=== PATIENT | male | born 1960 ===

== ENCOUNTER 2018-09-14 19:28 | Inpatient (IN) | payer OTHER ==
--- NOTE | 2018-09-14 19:33 | C.PDOC ---
History Of Present Illness 58 year old male presents to the ED c/o mid epigastric abdominal pain associated with nausea that started yesterday. Patient reports symptoms started since returning from [place] trip. Patient states his pain is sharp, stabbing with 6/10 discomfort. Patient denies fever, chill, vomit, diarrhea, dysuria, heamturia, rash. Time Seen by Provider: 09/14/18 19:32 Chief Complaint (Nursing): Abdominal Pain History Per: Patient History/Exam Limitations: no limitations Onset/Duration Of Symptoms: Days (1) Current Symptoms Are (Timing): Still Present Context: Travel Severity: Severe Pain Scale Rating Of: 6 Location Of Pain/Discomfort: Epigastric Radiation Of Pain To:: None Quality Of Discomfort: Sharp, Stabbing Associated Symptoms: Nausea, Vomiting. denies: Diarrhea, Urinary Symptoms Exacerbating Factors: None Alleviating Factors: None Last Bowel Movement: Today Recent travel outside of the [place]: No Additional History Per: Patient, Family Past Medical History Reviewed: Historical Data, Nursing Documentation, Vital Signs - Medical History PMH: No Chronic Diseases Surgical History: No Surg Hx Family History: States: Unknown Family Hx - Social History Hx Tobacco Use: No Hx Alcohol Use: No Hx Substance Use: No Review Of Systems Constitutional: Negative for: Fever, Chills Cardiovascular: Negative for: Chest Pain Respiratory: Negative for: Cough, Shortness of Breath Gastrointestinal: Positive for: Nausea, Abdominal Pain. Negative for: Vomiting, Diarrhea Genitourinary: Negative for: Dysuria, Hematuria Musculoskeletal: Negative for: Back Pain Skin: Negative for: Rash Physical Exam - Physical Exam Appears: Non-toxic, In Acute Distress Skin: Warm, Dry Head: Normacephalic Eye(s): bilateral: Normal Inspection Oral Mucosa: Dry Neck: Supple Chest: Symmetrical Cardiovascular: Rhythm Regular Respiratory: No Rales, No Rhonchi, No Wheezing Gastrointestinal/Abdominal: Soft, Tenderness (diffuse mid epigastric), No Distention, Guarding (voluntary), No Rebound Back: Normal Inspection Extremity: Normal ROM Extremity: Bilateral: Atraumatic, Normal Color And Temperature, Normal ROM Pulses: Left Dorsalis Pedis: Normal, Right Dorsalis Pedis: Normal Neurological/Psych: Oriented x3, Normal Speech, Normal Cognition Gait: Steady ED Course And Treatment - Laboratory Results Result Diagrams: 09/14/18 20:00 09/14/18 20:00 ECG: Interpreted By Me, Viewed By Me ECG Rhythm: Sinus Rhythm (77), Nonspecific Changes O2 Sat by Pulse Oximetry: 100 (ON RA) Pulse Ox Interpretation: Normal - CT Scan/US CT abd/pelvis Other Rad Studies (CT/US): Read By Radiologist, Radiology Report Reviewed CT/US Interpretation: MPRESSION: 1. FREE ABDOMINAL AND PELVIC FLUID. 2. CORONAL IMAGES DEMONSTRATE FLUID SURROUNDING THE c-LOOP OF THE DUODENUM, SEE CORONAL IMAGE 43. 3. THE DUODENAL MUCOSA APPEARS THICKENED. 4. BILATERAL SMALL RENAL CYSTS. 5. PPROSTHETIC CALCIFICATIONS. 6. NORMAL CALIBER ABDOMINAL AORTA. 7. APPENDIX NOT VISUALIZED WITH CERTAINTY.WHAT IS PRESUMED TO BE THE APPENDIX IS NONINFLAMMATORY, SEE CORONAL IMAGE #31. 8. NO EVIDENCE OF CHOLELITHIASIS. 9. cONSIDER DUODENAL ULCER. . Electronically signed on Sep 14, 2018 10:33:58 PM EST by: Shaun Leonard M.D., Certified by [facility]. spoke with the surgical garment inspector. will come and examine the patient Progress Note: Plan: - EKG. - Labs. - Morphine 4 mg IVP. - Protonix 40 mg IVP. - IV fluids. - Zofran 4 mg IVP. - UA Critical Care Time - Critical Care Note Total Time (in mins): 30 Documented critical care: time excludes all time spent performing seperately billable procedures. Disposition Discussed With : Byron Kiran Comment: accepted the pt on his service and took care at 10:48 PM Doctor Will See Patient In The: Hospital Counseled Patient/Family Regarding: Studies Performed, Diagnosis - Disposition Disposition: HOSPITALIZED Disposition Time: 19:33 Condition: FAIR Forms: [employer] (Nauruan) - POA Present On Arrival: Poor Glycemic Control - Clinical Impression Clinical Impression: Abdominal pain, Nausea, Vomiting, Pancreatitis, Jaundice - Scribe Statement The provider has reviewed the documentation as recorded by the Scribe Quan Joseph All medical record entries made by the Scribe were at my direction and personally dictated by me. I have reviewed the chart and agree that the record accurately reflects my personal performance of the history, physical exam, medical decision making, and the department course for this patient. I have also personally directed, reviewed, and agree with the discharge instructions and disposition. Decision To Admit - Pt Status Changed To: Hospital Disposition Of: Inpatient - Admit Certification Admit to Inpatient:: After my assessment, the patient will require ho spitalization for at least two midnights. This is because of the severity of symptoms shown, intensity of services needed, and/or the medical risk in this patient being treated as an outpatient. - InPatient: Physician Admission Certification:: After my assessment, the patient will require hospitalization for at least two midnights. This is because of the se verity of symptoms shown, intensity of services needed, and/or the medical risk in this patient being treated as an outpatient. - . Bed Request Type: Regular Admitting Physician: Byron Kiran Patient Diagnosis: Abdominal pain, Nausea, Vomiting, Pancreatitis, Jaundice
[2018-09-14] MEDS ORDERED: Sodium Chloride 0.9% 1,000 ML IV ONE (19:49)
[2018-09-14] MEDS ORDERED: Morphine 4 MG/ML VIAL ONE ×2 (19:52→22:21)
[2018-09-14] MEDS ORDERED: Sodium Chloride 0.9% 1,000 ML ONE (19:53)
[2018-09-14 20:07] LABS: BASO % 0.2 % (0.0-2.0); EOS # 0.1 K/uL (0.0-0.7); EOS % 0.8 % (0.0-4.0); HEMOGLOBIN 16.9 g/dL (12.0-18.0); LYMPH # 3.3 K/uL (1.0-4.3); LYMPH % 17.7 % (20.0-40.0); MEAN CELL VOLUME 87.5 fL (80.0-94.0); MEAN CORPUSCULAR HEMOGLOBIN 28.7 pg (27.0-31.0); MEAN CORPUSCULAR HGB CONC 32.8 g/dL (33.0-37.0); MONO % 5.2 % (0.0-10.0); NEUT # 14.1 K/uL (1.8-7.0); NEUT % 76.1 % (50.0-75.0); RBC 5.91 Mil/uL (4.40-5.90); RED CELL DISTRIBUTION WIDTH 13.6 % (11.5-14.5); WHITE BLOOD COUNT 18.6 K/uL (4.8-10.8)
[2018-09-14 20:21] LABS: PROTHROMBIN TIME 11.2 SECONDS (9.7-12.2)
[2018-09-14 20:22] LABS: ALB/GLOB RATIO 1.3 (1.0-2.1); ALBUMIN 4.5 g/dL (3.5-5.0); ALT/SGPT 152 U/L (21-72); AST/SGOT 240 U/L (17-59); BLOOD UREA NITROGEN 20 mg/dL (9-20); CALCIUM 8.8 mg/dl (8.6-10.4); GFR NON-AFRICAN AMERICAN > 60
[2018-09-14] MEDS ORDERED: Piperacillin/Tazobact 3.375 gm 100 ML IVPB STA (20:42)
[2018-09-14] MEDS ORDERED: metroNIDAZOLE IV 500 mg/100 ml 500 MG/100 ML BAG IVPB SCH (20:45)
[2018-09-14] MEDS ORDERED: Piperacillin/Tazobact 3.375 gm 100 ML IVPB ONE (20:52)
[2018-09-14] MEDS ORDERED: metroNIDAZOLE IV 500 mg/100 ml 500 MG/100 ML BAG ONE (20:52)
[2018-09-14] MEDS ORDERED: metroNIDAZOLE IV 500 mg/100 ml 500 MG/100 ML BAG IVPB STA (21:00)
[2018-09-14] MEDS ORDERED: Iohexol 300 100 ML IJ ONE (21:19)
[2018-09-14 21:44] LABS: LIPASE 35637 U/L (23-300)
[2018-09-14 21:57] LABS: URINE BILIRUBIN NEGATIVE (NEGATIVE); URINE BLOOD NEGATIVE (NEGATIVE); URINE CLARITY Clear (Clear); URINE COLOR Yellow (YELLOW); URINE GLUCOSE (UA) NORMAL (Normal); URINE LEUKOCYTE ESTERASE NEG Leu/uL (Negative); URINE PROTEIN NEGATIVE (NEGATIVE); URINE UROBILINOGEN NORMAL mg/dL (0.2-1.0)
[2018-09-14] MEDS ORDERED: Dextrose 5%/0.45% NS 1,000 ML IV SCH (23:00)
[2018-09-14] MEDS ORDERED: Lactated Ringer's 1,000 ML IV SCH (23:45)
--- NOTE | 2018-09-15 00:15 | CP.PCM.CON ---
History of Present Illness - History of Present Illness History of Present Illness: General Surgery Consult Note for Dr. Jean CC: Abdominal pain This is a 58M with no significant PMH who was eating spicy soup at a restaurant on Wednesday that he often frequents. After the meal he developed abdominal pain and diarrhea. However since then he has not passed gas or moved his bowels. Pain worse with movement associated with diaphoresis. The only thing that has helped has been pain medication he received in the ER. He has never experienced anything like this before. He denies history of postprandial pain, ETOH abuse, or scorpion bites. He denies any nausea or vomiting, chest pain SOB. In the Ed the pt had a CT scan which was significant for fluid around the duodenum, no evidence of extraluminal air, no evidence of GB stones, [place] [address]. PMH: HTN PSH: None ALL: NKDA Social: Denies Vices Review of Systems - Review of Systems Review of Systems: 12 point review of systems noted and negative except for abdominal pain and d iaphoresis Past Patient History - Infectious Disease Hx of Infectious Diseases: None - Past Social History Smoking Status: Never Smoked - PSYCHIATRIC Hx Substance Use: No - ANESTHESIA Hx Anesthesia: No Meds Allergies/Adverse Reactions: Allergies Allergy/AdvReac Type Severity Reaction Status Date / Time No Known Allergies Allergy Unverified 09/14/18 19:36 - Medications Medications: Current Medications Dextrose/Sodium Chloride (Dextrose 5%/0.45% Ns 1000 Ml) 1,000 mls @ 100 mls/hr IV .Q10H GABRIELLE Lactated Ringer's (Lactated Ringer's) 1,000 mls @ 200 mls/hr IV .Q5H GABRIELLE Morphine Sulfate (Morphine) 4 mg IVP Q4H PRN PRN Reason: Pain, moderate (4-7) Pantoprazole Sodium (Protonix Inj) 40 mg IVP DAILY GABRIELLE Physical Exam - Constitutional Appears: Non-toxic, No Acute Distress - Head Exam Head Exam: ATRAUMATIC, NORMOCEPHALIC - Eye Exam Eye Exam: EOMI, Normal appearance - ENT Exam ENT Exam: Mucous Membranes Dry - Respiratory Exam Respiratory Exam: NORMAL BREATHING PATTERN - Cardiovascular Exam Cardiovascular Exam: +S1, +S2 - GI/Abdominal Exam GI & Abdominal Exam: Distended, Soft, Tenderness (Epigastric). absent: Firm, Guarding, Hernia, Rigid - Neurological Exam Neurological exam: Alert, Oriented x3 - Psychiatric Exam Psychiatric exam: Normal Affect, Normal Mood - Skin Skin Exam: Dry, Intact Results - Vital Signs Recent Vital Signs: Last Vital Signs Temp 97.7 F 09/14/18 23:47 Pulse 87 09/14/18 23:47 Resp 16 09/14/18 23:47 BP 141/89 09/14/18 23:47 Pulse Ox 97 09/14/18 23:47 - Labs Result Diagrams: 09/14/18 20:00 09/14/18 20:00 Labs: Laboratory Results - last 24 hr 09/14/18 09/14/18 09/14/18 20:00 20:00 20:00 WBC 18.6 H RBC 5.91 H Hgb 16.9 Hct 51.7 H MCV 87.5 MCH 28.7 MCHC 32.8 L RDW 13.6 Plt Count 143 MPV 9.0 Neut % (Auto) 76.1 H Lymph % (Auto) 17.7 L [place] % (Auto) 5.2 Eos % (Auto) 0.8 Baso % (Auto) 0.2 Neut # (Auto) 14.1 H Lymph # (Auto) 3.3 [place] # (Auto) 1.0 H Eos # (Auto) 0.1 Baso # (Auto) 0.0 PT 11.2 INR 1.0 APTT 27 Sodium 138 Potassium 3.6 Chloride 99 Carbon Dioxide 28 Anion Gap 15 BUN 20 Creatinine 1.0 Est GFR ( Amer) > 60 Est GFR (Non-Af Amer) > 60 Random Glucose 172 H Calcium 8.8 Total Bilirubin 1.8 H AST 240 H ALT 152 H Alkaline Phosphatase 94 Total Protein 8.0 Albumin 4.5 Globulin 3.5 Albumin/Globulin Ratio 1.3 Lipase 75594 H Urine Color Urine Clarity Urine pH Ur Specific [place] Urine Protein Urine Glucose (UA) Urine Ketones Urine Blood Urine Nitrate Urine Bilirubin Urine Urobilinogen Ur Leukocyte Esterase Urine WBC (Auto) Urine RBC (Auto) 09/14/18 21:51 WBC RBC Hgb Hct MCV MCH MCHC RDW Plt Count MPV Neut % (Auto) Lymph % (Auto) [place] % (Auto) Eos % (Auto) Baso % (Auto) Neut # (Auto) Lymph # (Auto) [place] # (Auto) Eos # (Auto) Baso # (Auto) PT INR APTT Sodium Potassium Chloride Carbon Dioxide Anion Gap BUN Creatinine Est GFR ( Amer) Est GFR (Non-Af Amer) Random Glucose Calcium Total Bilirubin AST ALT Alkaline Phosphatase Total Protein Albumin Globulin Albumin/Globulin Ratio Lipase Urine Color Yellow Urine Clarity Clear Urine pH 6.0 Ur Specific [place] 1.041 H Urine Protein Negative Urine Glucose (UA) Normal Urine Ketones Negative Urine Blood Negative Urine Nitrate Negative Urine Bilirubin Negative Urine Urobilinogen Normal Ur Leukocyte Esterase Neg Urine WBC (Auto) < 1 Urine RBC (Auto) < 1 - Imaging and Cardiology CT scan - abdomen Status: Image reviewed by me, Report reviewed by me CT scan - pelvis Status: Image reviewed by me, Report reviewed by me Assessment & Plan - Assessment and Plan (Free Text) Assessment: 58M with pancreatitis NPO IVF pain control monitor urine output serial abdominal exams f/u abdominal US D/W Dr. Miranda Monsalve PGY3
[2018-09-15] MEDS: Dextrose 5%/0.45% NS 1,000 ML IV SCH ×5 (00:20→15:33)
[2018-09-15 06:30] LABS: BASO % 0.3 % (0.0-2.0); EOS % 0.1 % (0.0-4.0); LYMPH # 0.9 K/uL (1.0-4.3); LYMPH % 7.8 % (20.0-40.0); MEAN CELL VOLUME 87.1 fL (80.0-94.0); MEAN CORPUSCULAR HEMOGLOBIN 29.3 pg (27.0-31.0); MEAN CORPUSCULAR HGB CONC 33.6 g/dL (33.0-37.0); MEAN PLATELET VOLUME 9.3 fL (7.2-11.7); MONO # 0.6 K/uL (0.0-0.8); MONO % 4.7 % (0.0-10.0); NEUT # 10.2 K/uL (1.8-7.0); NEUT % 87.1 % (50.0-75.0); NRBC % 0.1 % (0.0-2.0); PLATELET COUNT 117 K/uL (130-400); RBC 4.82 Mil/uL (4.40-5.90); RED CELL DISTRIBUTION WIDTH 13.7 % (11.5-14.5); WHITE BLOOD COUNT 11.7 K/uL (4.8-10.8)
[2018-09-15 06:44] LABS: HEMOGLOBIN 14.1 g/dL (12.0-18.0)
[2018-09-15 06:56] LABS: LDL CHOLESTEROL 117 mg/dL (0-129)
[2018-09-15 07:07] LABS: ALB/GLOB RATIO 1.1 (1.0-2.1); ALBUMIN 3.1 g/dL (3.5-5.0); ALT/SGPT 135 U/L (21-72); AMYLASE 1132 U/L (30-110); AST/SGOT 101 U/L (17-59); BLOOD UREA NITROGEN 19 mg/dL (9-20); CALCIUM 7.6 mg/dl (8.6-10.4); GFR NON-AFRICAN AMERICAN > 60; HDL CHOLESTEROL 41 mg/dL (30-70)
[2018-09-15 07:10] LABS: LIPASE 5699 U/L (23-300)
[2018-09-15 08:35] LABS: LYMPHOCYTE 9 % (20-40); MONOCYTE 3 % (0-10); NEUTROPHIL 88 % (50-75); PLATELET ESTIMATE SLIGHTLY DECREASED (NORMAL); TOTAL CELLS COUNTED 100
--- NOTE | 2018-09-15 08:39 | CP.PCM.CON ---
<Payton Salazar - Last Filed: 09/15/18 17:30> History of Present Illness - History of Present Illness History of Present Illness: Patient is a 58 yo male with no PMH who presented to the ED with severe abdominal pain after eating spicy food. Lipase >35,000. Preliminary read of CT showed fluid around the duodenum, consistent with acute pancreatitis. He was made NPO and treated with IVF and morphine. Today, patient's abdominal pain is improving. He rates severity 10 as compared to 08/10 yesterday. Additionally, his lipase has decreased to 5700. PMH: denies Meds: ASA 81 mg PO daily All: NKA FH: denies SH: denies alcohol, tobacco, illicit drugs PMD: Qiana Review of Systems - Review of Systems All systems: reviewed and no additional remarkable complaints except - Constitutional Constitutional: absent: Anorexia, Chills, Fever, Headache - EENT Eyes: absent: Change in Vision - Cardiovascular Cardiovascular: absent: Chest Pain, Diaphoresis, Dyspnea - Respiratory Respiratory: absent: Cough, Dyspnea - Gastrointestinal Gastrointestinal: As Per HPI, Abdominal Pain, Bloating. absent: Diarrhea, Nausea, Vomiting - Genitourinary Genitourinary: absent: Dysuria, Hematuria - Musculoskeletal Musculoskeletal: absent: Arthralgias, Numbness, Tingling - Integumentary Integumentary: absent: Lesions - Neurological Neurological: absent: Dizziness, Headaches, Paresthesias, Syncope - Psychiatric Psychiatric: absent: Anxiety - Hematologic/Lymphatic Hematologic: absent: Easy Bleeding, Easy Bruising, Lymphadenopathy Past Patient History - Infectious Disease Hx of Infectious Diseases: None - Past Medical History & Family History Past Medical History?: Yes - Past Social History Smoking Status: Former Smoker Chewing Tobacco Use: No Cigar Use: No Alcohol: None Drugs: Denies - CARDIAC Hx Cardiac Disorders: Yes Hx Hypercholesterolemia: Yes Other/Comment: was on cholesterol med but was stopped by because :it's ok now" - PULMONARY Hx Respiratory Disorders: No Hx Asthma: No Hx Bronchitis: No Hx Chronic Obstructive Pulmonary Disease (COPD): No Hx Emphysema: No Hx Lung Cancer: No Hx Pneumonia: No Hx Pulmonary Edema: No Hx Pulmonary Embolism: No Hx Respiratory Aspiration: No Hx Respiratory Tract Infection: No Hx Sleep Apnea: No Hx Tuberculosis: No - NEUROLOGICAL Hx Neurological Disorder: No Hx Alzheimer's Disease: No HX Cerebrovascular Accident: No Hx Dementia: No Hx Dizziness: No Hx Meningitis: No Hx Migraine: No Hx Multiple Sclerosis: No Hx Paralysis: No Hx Parkinson's Disease: No Hx Seizures: No Hx Syncope: No Hx Transient Ischemic Attacks (TIA): No Hx Vertigo: No - HEENT Hx HEENT Problems: Yes Hx Blind: No Hx Cataracts: No Hx Deafness: No Hx Difficulty Chewing: No Hx Epistaxis: No Hx Glaucoma: No Hx Macular Degeneration: No Hx Sinusitis: No Other/Comment: Wears eyeglassess for driving - RENAL Hx Chronic Kidney Disease: No Hx Dialysis: No Hx Kidney Stones: No Hx Neurogenic Bladder: No Hx Pyelonephritis: No Hx Renal (Kidney) Cancer: No Hx Renal Failure: No - ENDOCRINE/METABOLIC Hx Endocrine Disorders: No Hx Adrenal Cancer: No Hx Diabetes Insipidus: No Hx Diabetes Mellitus Type 1: No Hx Diabetes Mellitus Type 2: No Hx Hyperthyroidism: No Hx Hypothyroidism: No Hx Systemic Lupus Erythematosus: No - HEMATOLOGICAL/ONCOLOGICAL Hx Blood Disorders: No - INTEGUMENTARY Hx Dermatological Problems: No - MUSCULOSKELETAL/RHEUMATOLOGICAL Hx Musculoskeletal Disorders: No Hx Falls: No - GASTROINTESTINAL Hx Gastrointestinal Disorders: No - GENITOURINARY/GYNECOLOGICAL Hx Genitourinary Disorders: No - PSYCHIATRIC Hx Psychophysiologic Disorder: No Hx Substance Use: No - SURGICAL HISTORY Hx Surgeries: No - ANESTHESIA Hx Anesthesia: No Hx Anesthesia Reactions: No Hx Malignant Hyperthermia: No Has any member of the family had a problem w/ anesthesia?: No Meds Allergies/Adverse Reactions: Allergies Allergy/AdvReac Type Severity Reaction Status Date / Time No Known Allergies Allergy Unverified 09/14/18 19:36 - Medications Medications: Current Medications Dextrose/Sodium Chloride (Dextrose 5%/0.45% Ns 1000 Ml) 1,000 mls @ 300 mls/hr IV .Q3H20M [facility] Last Admin: 09/15/18 08:03 Dose: 300 mls/hr Influenza Virus Vaccine (Fluzone Quad [id number]) 60 mcg IM .ONCE ONE Stop: 09/18/18 14:01 Morphine Sulfate (Morphine) 4 mg IVP Q4H PRN PRN Reason: Pain, moderate (4-7) Pantoprazole Sodium (Protonix Inj) 40 mg IVP DAILY [facility] Pneumococcal Polyvalent Vaccine (Pneumovax 23 Vaccine) 0.5 ml IM .ONCE ONE Stop: 09/18/18 14:01 Physical Exam - Constitutional Appears: Non-toxic, No Acute Distress - Head Exam Head Exam: ATRAUMATIC, NORMAL INSPECTION - Eye Exam Eye Exam: EOMI, Normal appearance, PERRL - ENT Exam ENT Exam: Mucous Membranes Moist - Neck Exam Neck exam: Positive for: Normal Inspection - Respiratory Exam Respiratory Exam: Clear to Auscultation Bilateral, NORMAL BREATHING PATTERN. absent: Accessory Muscle Use, Respiratory Distress - Cardiovascular Exam Cardiovascular Exam: REGULAR RHYTHM, +S1, +S2 - GI/Abdominal Exam GI & Abdominal Exam: Distended, Firm, Hyperactive Bowel Sounds, Tenderness. absent: Rebound, Rigid - Rectal Exam Rectal Exam: Deferred - Extremities Exam Extremities exam: Positive for: normal inspection - Neurological Exam Neurological exam: Alert, CN II-XII Intact, Oriented x3 - Psychiatric Exam Psychiatric exam: Normal Affect, Normal Mood - Skin Skin Exam: Dry, Intact, Normal Color, Warm Results - Vital Signs Recent Vital Signs: Last Vital Signs Temp 97.7 F 09/15/18 00:00 Pulse 80 09/15/18 00:24 Resp 18 09/15/18 00:24 BP 158/94 H 09/15/18 00:00 Pulse Ox 99 09/15/18 00:00 - Labs Result Diagrams: 09/15/18 06:24 09/15/18 06:24 Labs: Laboratory Results - last 24 hr 09/14/18 09/14/18 09/14/18 20:00 20:00 20:00 WBC 18.6 H RBC 5.91 H Hgb 16.9 Hct 51.7 H MCV 87.5 MCH 28.7 MCHC 32.8 L RDW 13.6 Plt Count 143 MPV 9.0 Neut % (Auto) 76.1 H Lymph % (Auto) 17.7 L [place] % (Auto) 5.2 Eos % (Auto) 0.8 Baso % (Auto) 0.2 Neut # (Auto) 14.1 H Lymph # (Auto) 3.3 [place] # (Auto) 1.0 H Eos # (Auto) 0.1 Baso # (Auto) 0.0 Neutrophils % (Manual) Lymphocytes % (Manual) Monocytes % (Manual) Platelet Estimate PT 11.2 INR 1.0 APTT 27 Sodium 138 Potassium 3.6 Chloride 99 Carbon Dioxide 28 Anion Gap 15 BUN 20 Creatinine 1.0 Est GFR ( Amer) > 60 Est GFR (Non-Af Amer) > 60 Random Glucose 172 H Calcium 8.8 Total Bilirubin 1.8 H AST 240 H ALT 152 H Alkaline Phosphatase 94 Total Protein 8.0 Albumin 4.5 Globulin 3.5 Albumin/Globulin Ratio 1.3 Triglycerides Cholesterol LDL Cholesterol Direct HDL Cholesterol Amylase Lipase 17814 H Urine Color Urine Clarity Urine pH Ur Specific [place] Urine Protein Urine Glucose (UA) Urine Ketones Urine Blood Urine Nitrate Urine Bilirubin Urine Urobilinogen Ur Leukocyte Esterase Urine WBC (Auto) Urine RBC (Auto) 09/14/18 09/15/18 09/15/18 21:51 06:24 06:24 WBC 11.7 H RBC 4.82 Hgb 14.1 D Hct 42.0 MCV 87.1 MCH 29.3 MCHC 33.6 RDW 13.7 Plt Count 117 L D MPV 9.3 Neut % (Auto) 87.1 H Lymph % (Auto) 7.8 L [place] % (Auto) 4.7 Eos % (Auto) 0.1 Baso % (Auto) 0.3 Neut # (Auto) 10.2 H Lymph # (Auto) 0.9 L [place] # (Auto) 0.6 Eos # (Auto) 0.0 Baso # (Auto) 0.0 Neutrophils % (Manual) 88 H Lymphocytes % (Manual) 9 L Monocytes % (Manual) 3 Platelet Estimate Slightly decreased L PT INR APTT Sodium 133 Potassium 4.0 Chloride 101 Carbon Dioxide 27 Anion Gap 9 L BUN 19 Creatinine 0.9 Est GFR ( Amer) > 60 Est GFR (Non-Af Amer) > 60 Random Glucose 143 H Calcium 7.6 L Total Bilirubin 1.4 H AST 101 H D ALT 135 H Alkaline Phosphatase 57 Total Protein 5.9 L Albumin 3.1 L D Globulin 2.7 Albumin/Globulin Ratio 1.1 Triglycerides 46 Cholesterol 156 LDL Cholesterol Direct 117 HDL Cholesterol 41 Amylase 1132 H Lipase 5699 H Urine Color Yellow Urine Clarity Clear Urine pH 6.0 Ur Specific [place] 1.041 H Urine Protein Negative Urine Glucose (UA) Normal Urine Ketones Negative Urine Blood Negative Urine Nitrate Negative Urine Bilirubin Negative Urine Urobilinogen Normal Ur Leukocyte Esterase Neg Urine WBC (Auto) < 1 Urine RBC (Auto) < 1 Assessment & Plan - Assessment and Plan (Free Text) Assessment: Patient is a 58 yo male who presented with acute pancreatitis. He is NPO. MRCP pending. ICU consulted due to severe pain and elevated lipase. Lipase has decreased from 35,000 to 5700. Pain has improved from 08/10 to 4/10, well controlled with morphine. Patient does not require ICU admission at this time. Will reassess if patient's presentation declines. Plan: Neuro: - No acute issues - Monitor mental status CV: - Monitor vitals Pulm: - Maintain spO2>92%- supplemental O2 PRN GI: Acute pancreatitis - Kayla's score on admission- 3 points - Kayla's score 48 hrs- 4 points, 15% mortality - Lipase improved 35,000->5700 - Calcium 8.8->7.6 (corrected Ca 8.3) - LDH 701 - CT A/P w/ IV contrast: acute pancreatitis, large amount of peripancreatic fluid that extends into pararenal spaces b/l on into the R paracolic gutter, perihepatic fluid, fluid partially surrounds duodenum, small amount of fluid into GB fossa, mild-mod fatty liver, b/l renal cysts - Abd u/s: acute pancreatitis, fatty liver vs parenchymal disease, cyst in L hepatic lobe, free fluid in upper abdomen, 4x4 mm GB polyp, normal GB wall thickness, negative Arias's sign - MRCP: acute pancreatitis, suspect tiny GB polyp or stone, mild GB wall thickening - NPO - LR @ 150 mL/hr - Morphine 4 mg IV Q4H PRN - GI consulted ([facility]) - Surgery consulted ([facility]) : - I's & O's - Replete electrolytes PRN Endo: - Maintain euglycemia Heme: - Monitor H&H ID: - Afebrile - Leukocytosis improved (18.6->11.7) PPx: VTE: SCDs GI: PTX 40 mg IV daily Code status: full code Case discussed with attending, Dr. Hartmann. PGY-1 Payton Salazar D.O. <Rolando Hartmann - Last Filed: 09/15/18 21:20> Meds - Medications Medications: Current Medications Lactated Ringer's (Lactated Ringer's) 1,000 mls @ 150 mls/hr IV .Q6H40M [facility] Last Admin: 09/15/18 14:40 Dose: 150 mls/hr Influenza Virus Vaccine (Fluzone Quad [id number]) 60 mcg IM .ONCE ONE Stop: 09/18/18 14:01 Morphine Sulfate (Morphine) 4 mg IVP Q4H PRN PRN Reason: Pain, moderate (4-7) Pantoprazole Sodium (Protonix Inj) 40 mg IVP DAILY GABRIELLE Last Admin: 09/15/18 09:13 Dose: 40 mg Pneumococcal Polyvalent Vaccine (Pneumovax 23 Vaccine) 0.5 ml IM .ONCE ONE Stop: 09/18/18 14:01 Results - Vital Signs Recent Vital Signs: Last Vital Signs Temp 98.4 F 09/15/18 15:15 Pulse 82 09/15/18 15:15 Resp 20 09/15/18 15:15 BP 148/85 09/15/18 15:15 Pulse Ox 96 09/15/18 15:15 - Labs Result Diagrams: 09/15/18 06:24 09/15/18 06:24 Labs: Laboratory Results - last 24 hr 09/14/18 09/14/18 09/15/18 20:00 21:51 06:24 WBC 11.7 H RBC 4.82 Hgb 14.1 D Hct 42.0 MCV 87.1 MCH 29.3 MCHC 33.6 RDW 13.7 Plt Count 117 L D MPV 9.3 Neut % (Auto) 87.1 H Lymph % (Auto) 7.8 L [place] % (Auto) 4.7 Eos % (Auto) 0.1 Baso % (Auto) 0.3 Neut # (Auto) 10.2 H Lymph # (Auto) 0.9 L [place] # (Auto) 0.6 Eos # (Auto) 0.0 Baso # (Auto) 0.0 Neutrophils % (Manual) 88 H Lymphocytes % (Manual) 9 L Monocytes % (Manual) 3 Platelet Estimate Slightly decreased L Sodium Potassium Chloride Carbon Dioxide Anion Gap BUN Creatinine Est GFR ( Amer) Est GFR (Non-Af Amer) Random Glucose Calcium Total Bilirubin AST ALT Alkaline Phosphatase Lactate Dehydrogenase Total Protein Albumin Globulin Albumin/Globulin Ratio Triglycerides Cholesterol LDL Cholesterol Direct HDL Cholesterol Amylase Lipase 55349 H Urine Color Yellow Urine Clarity Clear Urine pH 6.0 Ur Specific [place] 1.041 H Urine Protein Negative Urine Glucose (UA) Normal Urine Ketones Negative Urine Blood Negative Urine Nitrate Negative Urine Bilirubin Negative Urine Urobilinogen Normal Ur Leukocyte Esterase Neg Urine WBC (Auto) < 1 Urine RBC (Auto) < 1 11/15/18 06:24 WBC RBC Hgb Hct MCV MCH MCHC RDW Plt Count MPV Neut % (Auto) Lymph % (Auto) [place] % (Auto) Eos % (Auto) Baso % (Auto) Neut # (Auto) Lymph # (Auto) [place] # (Auto) Eos # (Auto) Baso # (Auto) Neutrophils % (Manual) Lymphocytes % (Manual) Monocytes % (Manual) Platelet Estimate Sodium 133 Potassium 4.0 Chloride 101 Carbon Dioxide 27 Anion Gap 9 L BUN 19 Creatinine 0.9 Est GFR ( Amer) > 60 Est GFR (Non-Af Amer) > 60 Random Glucose 143 H Calcium 7.6 L Total Bilirubin 1.4 H AST 101 H D ALT 135 H Alkaline Phosphatase 57 Lactate Dehydrogenase 701 H Total Protein 5.9 L Albumin 3.1 L D Globulin 2.7 Albumin/Globulin Ratio 1.1 Triglycerides 46 Cholesterol 156 LDL Cholesterol Direct 117 HDL Cholesterol 41 Amylase 1132 H Lipase 5699 H Urine Color Urine Clarity Urine pH Ur Specific [place] Urine Protein Urine Glucose (UA) Urine Ketones Urine Blood Urine Nitrate Urine Bilirubin Urine Urobilinogen Ur Leukocyte Esterase Urine WBC (Auto) Urine RBC (Auto) Attending/Attestation - Attestation I have personally seen and examined this patient.: Yes I have fully participated in the care of the patient.: Yes I have reviewed all pertinent clinical information: Yes Notes (Text): 09/15/18 21:19 The Patient was seen and examined at the bedside, Medical records reviewed, and management issues were discussed and formulated with the house staff. I have reviewed all the relevant clinical, laboratory, hemodynamic, radiographic data and medications Events reviewed Agree with above resident's assessment and treatment plans of care as transcribed in Dr. Salazar's note.
--- NOTE | 2018-09-15 09:19 | US ---
Abdominal ultrasound History: Pancreatitis. Comparison: CT scan dated 09/14/2018 Technique: Real-time sonography was performed through the abdomen. Findings: Liver: 12.4 centimeters in length. Increased echogenicity of the hepatic parenchymal cortex suggestive for fatty infiltration versus hepatic parenchymal disease. Punctate hypoattenuated cyst seen within the left hepatic lobe on CT scan is not well appreciated on ultrasound. Gallbladder: No calculi or sludge. 4 x 4 millimeter nonmobile echogenic foci at the level of the gallbladder wall near the neck suggestive for prominent polyp. Gallbladder appears somewhat contracted. Normal wall thickness of 2 millimeters. Negative sonographic Arias's sign. Free fluid noted within the upper abdomen. Common bile duct measures 3.6 millimeters, within normal limits. Limited visualization of the pancreas. Visualized portions appear somewhat thickened and heterogeneous which may represent underlying acute pancreatitis. Clinical correlation. Correlation with pancreatic enzyme levels may be helpful if clinically indicated. Spleen measures 9.3 centimeters in length. Visualized aorta and IVC are grossly preserved. No gross atherosclerotic calcification and mural plaque within the visualized aorta. Right kidney: 10.5 x 5.1 x 5.3 centimeters. No calculi or hydronephrosis. Previously noted upper pole hypoechoic cyst in the right kidney is not well appreciated on this ultrasound. Left Kidney: 11.5 x 5.2 x 5.6 centimeters. No calculi or hydronephrosis. Impression: 1. Limited visualization of the pancreas. Visualized portions appear somewhat thickened and heterogeneous which may represent underlying acute pancreatitis. Clinical correlation. Correlation with pancreatic enzyme levels may be helpful if clinically indicated. 2. Increased echogenicity of the hepatic parenchymal cortex suggestive for fatty infiltration versus hepatic parenchymal disease. Punctate hypoattenuated cyst seen within the left hepatic lobe on CT scan is not well appreciated on ultrasound. 3. Free fluid noted within the upper abdomen. 4. 4 x 4 millimeter nonmobile echogenic foci at the level of the gallbladder wall near the neck suggestive for prominent polyp. Gallbladder appears somewhat contracted. Normal wall thickness of 2 millimeters. Negative sonographic Arias's sign. 5. Previously noted upper pole hypoechoic cyst in the right kidney is not well appreciated on this ultrasound.
[2018-09-15] MEDS ORDERED: Gadodiamide 287 mg/ml 20 ml IV ONE (10:26)
--- NOTE | 2018-09-15 10:51 | CT ---
Date of service: 2018-09-14 21:27:01 PROCEDURE: CT Abdomen and Pelvis . HISTORY: Abd pain, elevated liver enzymes COMPARISON: None. TECHNIQUE: Contiguous axial images of the abdomen and pelvis performed following intravenous injection of approximately 100 cc Omnipaque 300 contrast material. Additional 2D sagittal and coronal reformats generated. Radiation dose: Total exam DLP = 359.21 mGy-cm. This CT exam was performed using one or more of the following dose reduction techniques: Automated exposure control, adjustment of the mA and/or kV according to patient size, and/or use of iterative reconstruction technique. FINDINGS: LOWER THORAX: There is a trace right-sided effusion with mild right basilar atelectasis. Minimal atelectasis seen in the left lung base including the lingular region. No evidence of left-sided effusion. No basilar pneumothorax. Heart size is normal. No significant pericardial effusion LIVER: The liver exhibits relatively normal size.. Small low-attenuation foci focus seen in the left lobe liver near the diaphragmatic dome. Mild to moderate diffuse fatty hepatic infiltration.. GALLBLADDER AND BILE DUCTS: Gallbladder physiologically distended. No evidence of intraluminal gallbladder calculi. Questionable small amount of perinephric cholecystic fluid. PANCREAS: The pancreas is boggy and edematous appearance of the pancreas with moderate amount of peripancreatic infiltration and moderate to relatively moderate amount of fluid predominantly surrounding the inferior margin of the distal pancreatic body and tail extending into the left para renal space. In addition, there is fluid seen in the right para renal space surrounding a thick-walled duodenum. Duodenal wall thickening likely reactive to pancreatitis.. Small amount of fluid is also seen surrounding the inferior margin of the uncinate process.. Fluid also extends inferiorly in the along the right paracolic gutter into the lower pelvis region.. Small amount of perihepatic and lesser amount of perisplenic fluid.. SPLEEN: Small amount of perisplenic fluid no splenomegaly. ADRENALS: There are no adrenal lesions. KIDNEYS AND URETERS: Small, sub cm low-attenuation foci seen both kidneys right slightly larger than left. Findings most consistent with renal cysts. BLADDER: The urinary bladder is physiologically distended. No evidence of intraluminal urinary bladder calculi. REPRODUCTIVE: Prostate gland measures approximately 3.7 cm. Prostatic calcifications are present APPENDIX: Appendix not seen with complete certainty on this study however no obvious inflammatory changes right lower quadrant of the abdomen despite fluid extending into the paracolic gutter... BOWEL: Evaluation of the bowel is somewhat limited due to the lack of oral contrast material stomach is partially distended with food debris liquid and air. As mentioned above, there is wall thickening of the duodenum which is felt to be reactive secondary to pancreatitis. Duodenal ulcer would be less likely PERITONEUM: As above. No free intraperitoneal air. Tiny fat containing umbilical hernia LYMPH NODES: Unremarkable. No enlarged lymph nodes. VASCULATURE: Unremarkable. No aortic aneurysm. No significant aortic atherosclerotic calcification or mural plaque present. BONES: Mild multilevel degenerative spondylosis of the thoracic spine. No acute compression fractures OTHER FINDINGS: None. IMPRESSION: Findings consistent with acute pancreatitis if the relatively large amount of peripancreatic fluid that extends into the para renal spaces bilaterally and on the right side into the right paracolic gutter region more so than left. There also perihepatic and lesser amount of perisplenic fluid. Fluid also up partially surrounds the duodenum which exhibits thick-walled appearance likely reactive. A duodenal also would be less likely given the extent of the fluid. Small amount of fluid also extends into gallbladder fossa partially surrounds the gallbladder. Mild to moderate fatty hepatic infiltration. Bilateral renal cysts.
--- NOTE | 2018-09-15 13:37 | CP.PCM.CON ---
History of Present Illness - History of Present Illness History of Present Illness: This is a 58 year old man with abdominal pain. Patient presented to the ER with epigastric katz for five hours. Patient had eaten at a restaurant in [place] the day prior to admission and developed diarrhea afterward. Severe pain in the epigastric area, sharp/cramping, developed at 16:00 on the day of admission, was accompanied by nausea, and persisted until his arrival in the ER. He had a small amount of beer with the meal in [place]. He denies having similar pain previously. He also denies having fever, vomiting, difficulty swallowing, heartburn, constipation, and rectal bleeding. On evaluation in the ER, he was afebrile. Epigastric tenderness was noted on abdominal exam. Lab work showed leukocytosis (18.6), HCT 51.7%, AST 240, ALT 152, TBILI 1.8, ALKP 94, lipase 98289. Sonogram did not show any stones in the GB, possible GB polyp, common duct 3.6 mm. Review of Systems - Constitutional Constitutional: absent: Chills, Fever - Cardiovascular Cardiovascular: absent: Chest Pain - Respiratory Respiratory: absent: Cough, Dyspnea - Gastrointestinal Gastrointestinal: Abdominal Pain, Diarrhea, Nausea. absent: Constipation, Dysphagia, Heartburn, Hematochezia, Vomiting - Genitourinary Genitourinary: absent: Dysuria, Hematuria - Musculoskeletal Musculoskeletal: absent: Back Pain - Integumentary Integumentary: absent: Rash Past Patient History - Infectious Disease Hx of Infectious Diseases: None - Past Medical History & Family History Past Medical History?: Yes - Past Social History Smoking Status: Former Smoker Chewing Tobacco Use: No Cigar Use: No Alcohol: None Drugs: Denies - CARDIAC Hx Cardiac Disorders: Yes Hx Hypercholesterolemia: Yes Other/Comment: was on cholesterol med but was stopped by because :it's ok now" - PULMONARY Hx Respiratory Disorders: No Hx Asthma: No Hx Bronchitis: No Hx Chronic Obstructive Pulmonary Disease (COPD): No Hx Emphysema: No Hx Lung Cancer: No Hx Pneumonia: No Hx Pulmonary Edema: No Hx Pulmonary Embolism: No Hx Respiratory Aspiration: No Hx Respiratory Tract Infection: No Hx Sleep Apnea: No Hx Tuberculosis: No - NEUROLOGICAL Hx Neurological Disorder: No Hx Alzheimer's Disease: No HX Cerebrovascular Accident: No Hx Dementia: No Hx Dizziness: No Hx Meningitis: No Hx Migraine: No Hx Multiple Sclerosis: No Hx Paralysis: No Hx Parkinson's Disease: No Hx Seizures: No Hx Syncope: No Hx Transient Ischemic Attacks (TIA): No Hx Vertigo: No - HEENT Hx HEENT Problems: Yes Hx Blind: No Hx Cataracts: No Hx Deafness: No Hx Difficulty Chewing: No Hx Epistaxis: No Hx Glaucoma: No Hx Macular Degeneration: No Hx Sinusitis: No Other/Comment: Wears eyeglassess for driving - RENAL Hx Chronic Kidney Disease: No Hx Dialysis: No Hx Kidney Stones: No Hx Neurogenic Bladder: No Hx Pyelonephritis: No Hx Renal (Kidney) Cancer: No Hx Renal Failure: No - ENDOCRINE/METABOLIC Hx Endocrine Disorders: No Hx Adrenal Cancer: No Hx Diabetes Insipidus: No Hx Diabetes Mellitus Type 1: No Hx Diabetes Mellitus Type 2: No Hx Hyperthyroidism: No Hx Hypothyroidism: No Hx Systemic Lupus Erythematosus: No - HEMATOLOGICAL/ONCOLOGICAL Hx Blood Disorders: No - INTEGUMENTARY Hx Dermatological Problems: No - MUSCULOSKELETAL/RHEUMATOLOGICAL Hx Musculoskeletal Disorders: No Hx Falls: No - GASTROINTESTINAL Hx Gastrointestinal Disorders: No - GENITOURINARY/GYNECOLOGICAL Hx Genitourinary Disorders: No - PSYCHIATRIC Hx Psychophysiologic Disorder: No Hx Substance Use: No - SURGICAL HISTORY Hx Surgeries: No - ANESTHESIA Hx Anesthesia: No Hx Anesthesia Reactions: No Hx Malignant Hyperthermia: No Has any member of the family had a problem w/ anesthesia?: No Meds Allergies/Adverse Reactions: Allergies Allergy/AdvReac Type Severity Reaction Status Date / Time No Known Allergies Allergy Unverified 09/14/18 19:36 - Medications Medications: Current Medications Dextrose/Sodium Chloride (Dextrose 5%/0.45% Ns 1000 Ml) 1,000 mls @ 300 mls/hr IV .Q3H20M [facility] Last Admin: 09/15/18 08:03 Dose: 300 mls/hr Influenza Virus Vaccine (Fluzone Quad [id number]) 60 mcg IM .ONCE ONE Stop: 09/18/18 14:01 Morphine Sulfate (Morphine) 4 mg IVP Q4H PRN PRN Reason: Pain, moderate (4-7) Pantoprazole Sodium (Protonix Inj) 40 mg IVP DAILY [facility] Last Admin: 09/15/18 09:13 Dose: 40 mg Pneumococcal Polyvalent Vaccine (Pneumovax 23 Vaccine) 0.5 ml IM .ONCE ONE Stop: 09/18/18 14:01 Physical Exam - Head Exam Head Exam: ATRAUMATIC, NORMOCEPHALIC - Eye Exam Eye Exam: EOMI, PERRL - Neck Exam Neck exam: Negative for: Lymphadenopathy, Thyromegaly - Respiratory Exam Respiratory Exam: NORMAL BREATHING PATTERN. absent: Rales, Rhonchi, Wheezes - Cardiovascular Exam Cardiovascular Exam: REGULAR RHYTHM, +S1, +S2. absent: Gallop, Rubs, Systolic M urmur - GI/Abdominal Exam GI & Abdominal Exam: Distended, Normal Bowel Sounds, Soft, Tenderness. absent: Mass, Organomegaly Additional comments: Mild tenderness to palpation in epigastrium - Rectal Exam Rectal Exam: Deferred - Extremities Exam Extremities exam: Negative for: calf tenderness, pedal edema Results - Vital Signs Recent Vital Signs: Last Vital Signs Temp 98.5 F 09/15/18 07:00 Pulse 79 09/15/18 07:00 Resp 18 09/15/18 07:00 BP 131/82 09/15/18 07:00 Pulse Ox 97 09/15/18 07:00 - Labs Result Diagrams: 09/15/18 06:24 09/15/18 06:24 Labs: Laboratory Results - last 24 hr 09/14/18 09/14/18 09/14/18 20:00 20:00 20:00 WBC 18.6 H RBC 5.91 H Hgb 16.9 Hct 51.7 H MCV 87.5 MCH 28.7 MCHC 32.8 L RDW 13.6 Plt Count 143 MPV 9.0 Neut % (Auto) 76.1 H Lymph % (Auto) 17.7 L [place] % (Auto) 5.2 Eos % (Auto) 0.8 Baso % (Auto) 0.2 Neut # (Auto) 14.1 H Lymph # (Auto) 3.3 [place] # (Auto) 1.0 H Eos # (Auto) 0.1 Baso # (Auto) 0.0 Neutrophils % (Manual) Lymphocytes % (Manual) Monocytes % (Manual) Platelet Estimate PT 11.2 INR 1.0 APTT 27 Sodium 138 Potassium 3.6 Chloride 99 Carbon Dioxide 28 Anion Gap 15 BUN 20 Creatinine 1.0 Est GFR ( Amer) > 60 Est GFR (Non-Af Amer) > 60 Random Glucose 172 H Calcium 8.8 Total Bilirubin 1.8 H AST 240 H ALT 152 H Alkaline Phosphatase 94 Lactate Dehydrogenase Total Protein 8.0 Albumin 4.5 Globulin 3.5 Albumin/Globulin Ratio 1.3 Triglycerides Cholesterol LDL Cholesterol Direct HDL Cholesterol Amylase Lipase 41353 H Urine Color Urine Clarity Urine pH Ur Specific [place] Urine Protein Urine Glucose (UA) Urine Ketones Urine Blood Urine Nitrate Urine Bilirubin Urine Urobilinogen Ur Leukocyte Esterase Urine WBC (Auto) Urine RBC (Auto) 09/14/18 09/15/18 09/15/18 21:51 06:24 06:24 WBC 11.7 H RBC 4.82 Hgb 14.1 D Hct 42.0 MCV 87.1 MCH 29.3 MCHC 33.6 RDW 13.7 Plt Count 117 L D MPV 9.3 Neut % (Auto) 87.1 H Lymph % (Auto) 7.8 L [place] % (Auto) 4.7 Eos % (Auto) 0.1 Baso % (Auto) 0.3 Neut # (Auto) 10.2 H Lymph # (Auto) 0.9 L [place] # (Auto) 0.6 Eos # (Auto) 0.0 Baso # (Auto) 0.0 Neutrophils % (Manual) 88 H Lymphocytes % (Manual) 9 L Monocytes % (Manual) 3 Platelet Estimate Slightly decreased L PT INR APTT Sodium 133 Potassium 4.0 Chloride 101 Carbon Dioxide 27 Anion Gap 9 L BUN 19 Creatinine 0.9 Est GFR ( Amer) > 60 Est GFR (Non-Af Amer) > 60 Random Glucose 143 H Calcium 7.6 L Total Bilirubin 1.4 H AST 101 H D ALT 135 H Alkaline Phosphatase 57 Lactate Dehydrogenase 701 H Total Protein 5.9 L Albumin 3.1 L D Globulin 2.7 Albumin/Globulin Ratio 1.1 Triglycerides 46 Cholesterol 156 LDL Cholesterol Direct 117 HDL Cholesterol 41 Amylase 1132 H Lipase 5699 H Urine Color Yellow Urine Clarity Clear Urine pH 6.0 Ur Specific [place] 1.041 H Urine Protein Negative Urine Glucose (UA) Normal Urine Ketones Negative Urine Blood Negative Urine Nitrate Negative Urine Bilirubin Negative Urine Urobilinogen Normal Ur Leukocyte Esterase Neg Urine WBC (Auto) < 1 Urine RBC (Auto) < 1 Assessment & Plan - Assessment and Plan (Free Text) Assessment: Patient has acute pancreatitis with significant hemoconcentration on admission, HCT 51.7%. Patient has been hydrated overnight, and we will reduce the infusion rate this afternoon. MRCP has been performed but not read. Etiologies include alcohol, microlithiasis, IgG4 related disease. Will follow.
--- NOTE | 2018-09-15 13:40 | CP.PCM.HP ---
History of Present Illness - History of Present Illness History of Present Illness: This is a 58 years old Nepali male who experienced severe abdominal pain, mild diarrhea, nausea, after eating soup at a restaurant in [place] yesterday. His and his [id number] ate the same soup and developed diarrhea, nausea, vomiting that subsided overnight. He has a history of HPTN, controlled by diet. He denies any cigarette smoking, any alcohol abuse. His father of a sudden in his 70's. His mother has DM, CAD, permanent pacemaker, HPTN. One brother in his sleep in his late 30's. Another brother had PCI in his late 50's. One brother recently underwent CABG in his early 50's. He does not take any medication, except ASA. In the ED, a CT scanof the abdomen revealed an edematous pancreas, thickened duodenal mucosa, and free fluid around the pancreas, in the colonic groove and around the kidneys.His serum Lipase: 35, 637 down to 5,599 today. WBC: 18,600 to 11,700 BUN: 19 creatinine: 0.9 glucose : 143 Ca++: 8.8 to 7.6 Total bilirubin: 1.8 to 1.4 AST: 210 to 101 ALT:152 to 135 Alk Phos: 94 to 57 LDH: 709. An abdominal US revealed no gallstone. The patient was kept NPO, started on IVF, and given Morphine sulfate for pain control. At the time at this examination, the patient abdominal pain decreases by about 50%, he has no nausea, vomiting, no flatus. Present on Admission - Present on Admission Any Indicators Present on Admission: No Review of Systems - Gastrointestinal Gastrointestinal: Abdominal Pain, Cramping, Diarrhea, Nausea Past Patient History - Infectious Disease Hx of Infectious Diseases: None - Tetanus Immunizations Tetanus Immunization: Unknown - Past Medical History & Family History Past Medical History?: Yes - Past Social History Smoking Status: Former Smoker Chewing Tobacco Use: No Cigar Use: No Alcohol: None Drugs: Denies Home Situation {Lives}: With Family Domestic Violence: Negative - CARDIAC Hx Hypercholesterolemia: Yes Other/Comment: was on cholesterol med but was stopped by because :it's ok now" - PULMONARY Hx Respiratory Disorders: No Hx Asthma: No Hx Bronchitis: No Hx Chronic Obstructive Pulmonary Disease (COPD): No Hx Emphysema: No Hx Lung Cancer: No Hx Pneumonia: No Hx Pulmonary Edema: No Hx Pulmonary Embolism: No Hx Respiratory Aspiration: No Hx Respiratory Tract Infection: No Hx Sleep Apnea: No Hx Tuberculosis: No - NEUROLOGICAL Hx Neurological Disorder: No Hx Alzheimer's Disease: No HX Cerebrovascular Accident: No Hx Dementia: No Hx Dizziness: No Hx Meningitis: No Hx Migraine: No Hx Multiple Sclerosis: No Hx Paralysis: No Hx Parkinson's Disease: No Hx Seizures: No Hx Syncope: No Hx Transient Ischemic Attacks (TIA): No Hx Vertigo: No - HEENT Hx HEENT Problems: Yes Hx Blind: No Hx Cataracts: No Hx Deafness: No Hx Difficulty Chewing: No Hx Epistaxis: No Hx Glaucoma: No Hx Macular Degeneration: No Hx Sinusitis: No Other/Comment: Wears eyeglassess for driving - RENAL Hx Chronic Kidney Disease: No Hx Dialysis: No Hx Kidney Stones: No Hx Neurogenic Bladder: No Hx Pyelonephritis: No Hx Renal (Kidney) Cancer: No Hx Renal Failure: No - ENDOCRINE/METABOLIC Hx Endocrine Disorders: No Hx Adrenal Cancer: No Hx Diabetes Insipidus: No Hx Diabetes Mellitus Type 1: No Hx Diabetes Mellitus Type 2: No Hx Hyperthyroidism: No Hx Hypothyroidism: No Hx Systemic Lupus Erythematosus: No - HEMATOLOGICAL/ONCOLOGICAL Hx Blood Disorders: No - INTEGUMENTARY Hx Dermatological Problems: No - MUSCULOSKELETAL/RHEUMATOLOGICAL Hx Musculoskeletal Disorders: No Hx Falls: No - GASTROINTESTINAL Hx Gastrointestinal Disorders: No - GENITOURINARY/GYNECOLOGICAL Hx Genitourinary Disorders: No - PSYCHIATRIC Hx Psychophysiologic Disorder: No Hx Substance Use: No - SURGICAL HISTORY Hx Surgeries: No - ANESTHESIA Hx Anesthesia: No Hx Anesthesia Reactions: No Hx Malignant Hyperthermia: No Has any member of the family had a problem w/ anesthesia?: No Meds Allergies/Adverse Reactions: Allergies Allergy/AdvReac Type Severity Reaction Status Date / Time No Known Allergies Allergy Unverified 09/14/18 19:36 Physical Exam - Constitutional Appears: Well - Head Exam Head Exam: NORMAL INSPECTION - Eye Exam Eye Exam: Normal appearance Pupil Exam: NORMAL ACCOMODATION - ENT Exam ENT Exam: Normal Exam - Neck Exam Neck exam: Positive for: Normal Inspection - Respiratory Exam Respiratory Exam: Clear to Auscultation Bilateral, NORMAL BREATHING PATTERN - Cardiovascular Exam Cardiovascular Exam: REGULAR RHYTHM - GI/Abdominal Exam GI & Abdominal Exam: Diminished Bowel Sounds, Guarding, Tenderness Additional comments: Tender and guarding of the epigastric area, with hypoactive BS. - Rectal Exam Rectal Exam: Deferred - Exam Exam: NORMAL INSPECTION - Extremities Exam Extremities exam: Positive for: normal inspection - Back Exam Back exam: NORMAL INSPECTION - Neurological Exam Neurological exam: Alert, CN II-XII Intact, Normal Gait, Oriented x3 - Psychiatric Exam Psychiatric exam: Anxious - Skin Skin Exam: Dry, Intact, Normal Color, Warm Results - Vital Signs Recent Vital Signs: Last Vital Signs Temp 98.5 F 09/15/18 07:00 Pulse 79 09/15/18 07:00 Resp 18 09/15/18 07:00 BP 131/82 09/15/18 07:00 Pulse Ox 97 09/15/18 07:00 - Labs Result Diagrams: 09/15/18 06:24 09/15/18 06:24 Labs: Laboratory Results - last 24 hr 09/14/18 09/14/18 09/14/18 20:00 20:00 20:00 WBC 18.6 H RBC 5.91 H Hgb 16.9 Hct 51.7 H MCV 87.5 MCH 28.7 MCHC 32.8 L RDW 13.6 Plt Count 143 MPV 9.0 Neut % (Auto) 76.1 H Lymph % (Auto) 17.7 L [place] % (Auto) 5.2 Eos % (Auto) 0.8 Baso % (Auto) 0.2 Neut # (Auto) 14.1 H Lymph # (Auto) 3.3 [place] # (Auto) 1.0 H Eos # (Auto) 0.1 Baso # (Auto) 0.0 Neutrophils % (Manual) Lymphocytes % (Manual) Monocytes % (Manual) Platelet Estimate PT 11.2 INR 1.0 APTT 27 Sodium 138 Potassium 3.6 Chloride 99 Carbon Dioxide 28 Anion Gap 15 BUN 20 Creatinine 1.0 Est GFR ( Amer) > 60 Est GFR (Non-Af Amer) > 60 Random Glucose 172 H Calcium 8.8 Total Bilirubin 1.8 H AST 240 H ALT 152 H Alkaline Phosphatase 94 Lactate Dehydrogenase Total Protein 8.0 Albumin 4.5 Globulin 3.5 Albumin/Globulin Ratio 1.3 Triglycerides Cholesterol LDL Cholesterol Direct HDL Cholesterol Amylase Lipase 68584 H Urine Color Urine Clarity Urine pH Ur Specific [place] Urine Protein Urine Glucose (UA) Urine Ketones Urine Blood Urine Nitrate Urine Bilirubin Urine Urobilinogen Ur Leukocyte Esterase Urine WBC (Auto) Urine RBC (Auto) 09/14/18 09/15/18 09/15/18 21:51 06:24 06:24 WBC 11.7 H RBC 4.82 Hgb 14.1 D Hct 42.0 MCV 87.1 MCH 29.3 MCHC 33.6 RDW 13.7 Plt Count 117 L D MPV 9.3 Neut % (Auto) 87.1 H Lymph % (Auto) 7.8 L [place] % (Auto) 4.7 Eos % (Auto) 0.1 Baso % (Auto) 0.3 Neut # (Auto) 10.2 H Lymph # (Auto) 0.9 L [place] # (Auto) 0.6 Eos # (Auto) 0.0 Baso # (Auto) 0.0 Neutrophils % (Manual) 88 H Lymphocytes % (Manual) 9 L Monocytes % (Manual) 3 Platelet Estimate Slightly decreased L PT INR APTT Sodium 133 Potassium 4.0 Chloride 101 Carbon Dioxide 27 Anion Gap 9 L BUN 19 Creatinine 0.9 Est GFR ( Amer) > 60 Est GFR (Non-Af Amer) > 60 Random Glucose 143 H Calcium 7.6 L Total Bilirubin 1.4 H AST 101 H D ALT 135 H Alkaline Phosphatase 57 Lactate Dehydrogenase 701 H Total Protein 5.9 L Albumin 3.1 L D Globulin 2.7 Albumin/Globulin Ratio 1.1 Triglycerides 46 Cholesterol 156 LDL Cholesterol Direct 117 HDL Cholesterol 41 Amylase 1132 H Lipase 5699 H Urine Color Yellow Urine Clarity Clear Urine pH 6.0 Ur Specific [place] 1.041 H Urine Protein Negative Urine Glucose (UA) Normal Urine Ketones Negative Urine Blood Negative Urine Nitrate Negative Urine Bilirubin Negative Urine Urobilinogen Normal Ur Leukocyte Esterase Neg Urine WBC (Auto) < 1 Urine RBC (Auto) < 1 Assessment & Plan (1) Acute pancreatitis Assessment and Plan: NPO, IVF, analgesics. F/U serum lipase, Amylase, serum electrolytes, ca++, CBC. GI and surgical evaluation. Awaiting MRCP. Status: Acute
[2018-09-15] MEDS: Lactated Ringer's 1,000 ML IV SCH ×2 (14:40→21:50)
--- NOTE | 2018-09-15 14:50 | MRI ---
MRI abdomen without/with IV contrast MRCP Indication: Acute pancreatitis Technique: Multiplanar, multi sequence magnetic resonance images of the abdomen were obtained without and with the administration of intravenous gadolinium using a multi phase abdomen protocol. Rotating maximum intensity projection images of the biliary system were generated. A total of 1054 images submitted for review Comparison: Abdominal ultrasound performed 09/15/[address] of the abdomen and pelvis performed 09/14/18 Findings: Hepatic steatosis. Too small to characterize 6 mm T2 hyperintense/T1 hypointense focus in the left hepatic lobe; likely cyst. The pancreas appears enlarged/edematous. Peripancreatic edema/upper abdominal free fluid. Gallbladder wall appears mildly thickened. Question tiny gallstone or polyp within the gallbladder. There is no intrahepatic biliary ductal dilatation. The common bile duct is not dilated. The pancreatic duct appears within normal limits of caliber. No filling defects are seen in the common bile duct or pancreatic duct. The spleen and adrenal glands appear unremarkable. The kidneys enhance symmetrically. No evidence of hydronephrosis or obstructing calculus. 9 mm right upper pole renal cyst. 8 mm left upper pole renal cyst. No bulky appreciated. Limited views of the inferior thorax demonstrates small right pleural effusion and atelectasis. Impression: Findings as above appear consistent with acute pancreatitis. Correlate clinically. Suspect tiny gallbladder polyp or gallstone. Mild gallbladder wall thickening. Correlate clinically. Bilateral probable renal cysts. Too small to characterize hepatic focus, likely cyst. Hepatic steatosis. Small right pleural effusion and atelectasis. Additional findings as above.
[2018-09-15] MEDS: Morphine 4 MG/ML VIAL IVP PRN (21:48)
[2018-09-16] MEDS: Lactated Ringer's 1,000 ML IV SCH ×4 (04:50→20:22)
[2018-09-16 06:58] LABS: BASO % 0.3 % (0.0-2.0); EOS # 0.1 K/uL (0.0-0.7); EOS % 0.7 % (0.0-4.0); HEMOGLOBIN 14.2 g/dL (12.0-18.0); LYMPH # 1.1 K/uL (1.0-4.3); LYMPH % 9.9 % (20.0-40.0); MEAN CELL VOLUME 86.5 fL (80.0-94.0); MEAN CORPUSCULAR HEMOGLOBIN 28.8 pg (27.0-31.0); MEAN CORPUSCULAR HGB CONC 33.3 g/dL (33.0-37.0); MEAN PLATELET VOLUME 9.1 fL (7.2-11.7); MONO # 0.8 K/uL (0.0-0.8); MONO % 6.8 % (0.0-10.0); NEUT # 9.5 K/uL (1.8-7.0); NEUT % 82.3 % (50.0-75.0); PLATELET COUNT 107 K/uL (130-400); RBC 4.91 Mil/uL (4.40-5.90); RED CELL DISTRIBUTION WIDTH 13.6 % (11.5-14.5); WHITE BLOOD COUNT 11.5 K/uL (4.8-10.8)
[2018-09-16 07:17] LABS: ALB/GLOB RATIO 1.1 (1.0-2.1); ALBUMIN 3.3 g/dL (3.5-5.0); ALT/SGPT 94 U/L (21-72); AMYLASE 572 U/L (30-110); AST/SGOT 35 U/L (17-59); BLOOD UREA NITROGEN 11 mg/dL (9-20); CALCIUM 8.1 mg/dl (8.6-10.4); GFR NON-AFRICAN AMERICAN > 60; LIPASE 1304 U/L (23-300)
--- NOTE | 2018-09-16 07:33 | CP.PCM.PN ---
Subjective - Date & Time of Evaluation Date of Evaluation: 09/16/18 Time of Evaluation: 07:15 - Subjective Subjective: Patient states that pain continues to improve. He denies having nausea and vomiting. He has not had a bowel movement since admission. Blood work today shows HCT 42.5% and BUN/Cr 11/0.8. MRI showed fatty liver, changes of pancreatitis, possible polyp in GB, no biliary dilatation or bile duct stone. Objective - Vital Signs/Intake and Output Vital Signs (last 24 hours): Temp Pulse Resp BP Pulse Ox 100 F H 102 H 20 152/104 H 90 L 09/16/18 04:14 09/16/18 04:14 09/16/18 04:14 09/16/18 04:14 09/16/18 04:14 Intake and Output: 09/16/18 09/16/18 06:59 18:59 Intake Total 1200 1200 Output Total 1400 1000 Balance -200 200 - Medications Medications: Current Medications Lactated Ringer's (Lactated Ringer's) 1,000 mls @ 150 mls/hr IV .Q6H40M [facility] Last Admin: 09/16/18 04:50 Dose: 150 mls/hr Influenza Virus Vaccine (Fluzone Quad [id number]) 60 mcg IM .ONCE ONE Stop: 09/18/18 14:01 Morphine Sulfate (Morphine) 4 mg IVP Q4H PRN PRN Reason: Pain, moderate (4-7) Last Admin: 09/15/18 21:48 Dose: 4 mg Pantoprazole Sodium (Protonix Inj) 40 mg IVP DAILY [facility] Last Admin: 09/15/18 09:13 Dose: 40 mg Pneumococcal Polyvalent Vaccine (Pneumovax 23 Vaccine) 0.5 ml IM .ONCE ONE Stop: 09/18/18 14:01 - Labs Labs: 09/16/18 06:46 09/16/18 06:46 PT 11.2 SECONDS (9.7-12.2) 09/14/18 20:00 INR 1.0 09/14/18 20:00 APTT 27 SECONDS (21-34) 09/14/18 20:00 - Constitutional Appears: No Acute Distress - Head Exam Head Exam: ATRAUMATIC, NORMOCEPHALIC - Eye Exam Eye Exam: EOMI, PERRL - Neck Exam Neck Exam: absent: Lymphadenopathy, Thyromegaly - Respiratory Exam Respiratory Exam: NORMAL BREATHING PATTERN. absent: Rales, Rhonchi, Wheezes - Cardiovascular Exam Cardiovascular Exam: REGULAR RHYTHM, +S1, +S2. absent: Gallop, Rubs, Murmur - GI/Abdominal Exam GI & Abdominal Exam: Distended, Soft, Normal Bowel Sounds. absent: Tenderness, Mass, Organomegaly - Rectal Exam Rectal Exam: Deferred - Extremities Exam Extremities Exam: absent: Calf Tenderness, Pedal Edema Assessment and Plan (1) Acute pancreatitis Assessment & Plan: Pain is improving. The BUN/Cr ratio has improved though the HCT is unchanged. Will start clear liquid diet. Status: Acute
[2018-09-16] MEDS ORDERED: Lactated Ringer's 1,000 ML IV SCH (07:35)
[2018-09-16 09:08] LABS: EOSINOPHIL 2 % (0-4); LYMPHOCYTE 10 % (20-40); MONOCYTE 2 % (0-10); NEUTROPHIL 86 % (50-75); PLATELET ESTIMATE SLIGHTLY DECREASED (NORMAL); TOTAL CELLS COUNTED 100
[2018-09-16] MEDS: Morphine 4 MG/ML VIAL IVP PRN (10:09)
--- NOTE | 2018-09-16 10:45 | CP.PCM.PN ---
Subjective - Date & Time of Evaluation Date of Evaluation: 09/16/18 Time of Evaluation: 10:36 - Subjective Subjective: General Surgery Progress Note For Dr. Jean This 58M was seen and examined this AM at bedside. He reports his pain is improving. He denies any nausea or vomiting he is passing gas however has not had a bowel movement. He denies any chest pain or SOB. We discussed that he will likely need his gallbladder removed, and it should be done before discharge. Objective - Vital Signs/Intake and Output Vital Signs (last 24 hours): Temp Pulse Resp BP Pulse Ox 99.0 F 98 H 20 153/95 H 92 L 09/16/18 07:00 09/16/18 07:00 09/16/18 07:00 09/16/18 07:00 09/16/18 09:03 Intake and Output: 09/16/18 09/16/18 06:59 18:59 Intake Total 1200 1200 Output Total 1400 1000 Balance -200 200 - Medications Medications: Current Medications Lactated Ringer's (Lactated Ringer's) 1,000 mls @ 120 mls/hr IV .Q8H20M [facility] Last Admin: 09/16/18 08:00 Dose: 120 mls/hr Influenza Virus Vaccine (Fluzone Quad [id number]) 60 mcg IM .ONCE ONE Stop: 09/18/18 14:01 Morphine Sulfate (Morphine) 4 mg IVP Q4H PRN PRN Reason: Pain, moderate (4-7) Last Admin: 09/16/18 10:09 Dose: 4 mg Pantoprazole Sodium (Protonix Inj) 40 mg IVP DAILY [facility] Last Admin: 09/16/18 10:08 Dose: 40 mg Pneumococcal Polyvalent Vaccine (Pneumovax 23 Vaccine) 0.5 ml IM .ONCE ONE Stop: 09/18/18 14:01 - Labs Labs: 09/16/18 06:46 09/16/18 06:46 PT 11.2 SECONDS (9.7-12.2) 09/14/18 20:00 INR 1.0 09/14/18 20:00 APTT 27 SECONDS (21-34) 09/14/18 20:00 - Constitutional Appears: Non-toxic, No Acute Distress - Head Exam Head Exam: ATRAUMATIC, NORMOCEPHALIC - Eye Exam Eye Exam: EOMI - ENT Exam ENT Exam: Mucous Membranes Moist - Respiratory Exam Respiratory Exam: NORMAL BREATHING PATTERN - Cardiovascular Exam Cardiovascular Exam: +S1, +S2 - GI/Abdominal Exam GI & Abdominal Exam: Distended, Guarding, Tenderness. absent: Soft - Neurological Exam Neurological Exam: Alert, Awake - Psychiatric Exam Psychiatric exam: Normal Affect, Normal Mood - Skin Skin Exam: Dry, Intact Assessment and Plan - Assessment and Plan (Free Text) Assessment: 58M with pancreatitis likely secondary to gallstones Patient endorsing improving pain and tenderness however he is still guarding MRCP: Possible small stone vs poly in GB. Recommend NPO IVF Pain control Will need cholecystectomy prior to discharge D/W Dr. Miranda Monsalve PGY3
[2018-09-16] MEDS: Piperacillin/Tazobact 3.375 GM in Sodium Chloride 100 ML IVPB SCH ×2 (17:44→22:10)
--- NOTE | 2018-09-16 20:23 | CP.PCM.PN ---
Subjective - Date & Time of Evaluation Date of Evaluation: 09/16/18 Time of Evaluation: 13:45 - Subjective Subjective: Patient still with abdominal pain, but less. No nausea, no fever, no flatus. Serum Amylase: 572 Lipase: 1304 WBC: 11.5 with 82 % PMN HGB; 14.3 Plt: 107,000 BUN: 11 Creatinine: 0.8 Mg++: 1.7 Ca++: 8.1 . MRCP: tiny polyp or stone of the gallbladder with mild wall thickening. Patient refuses cholecystectomy for now. Put on clear liquid by Dr Purvis. Objective - Vital Signs/Intake and Output Vital Signs (last 24 hours): Temp Pulse Resp BP Pulse Ox 98.5 F 90 20 173/90 H 94 L 09/16/18 16:10 09/16/18 16:10 09/16/18 16:10 09/16/18 16:10 09/16/18 16:10 Intake and Output: 09/16/18 09/17/18 18:59 06:59 Intake Total 2310 Output Total 2300 Balance 10 - Medications Medications: Current Medications Acetaminophen (Tylenol 325mg Tab) 650 mg PO Q6 PRN PRN Reason: Fever >100.4 F Lactated Ringer's (Lactated Ringer's) 1,000 mls @ 120 mls/hr IV .Q8H20M [facility] Last Admin: 09/16/18 08:00 Dose: 120 mls/hr Piperacillin Sod/Tazobactam (Sod 3.375 gm/ Sodium Chloride) 100 mls @ 200 mls/hr IVPB Q6H [facility]; Protocol Last Admin: 09/16/18 17:44 Dose: 200 mls/hr Influenza Virus Vaccine (Fluzone Quad [id number]) 60 mcg IM .ONCE ONE Stop: 09/18/18 14:01 Morphine Sulfate (Morphine) 4 mg IVP Q4H PRN PRN Reason: Pain, moderate (4-7) Last Admin: 09/16/18 10:09 Dose: 4 mg Pantoprazole Sodium (Protonix Inj) 40 mg IVP DAILY [facility] Last Admin: 09/16/18 10:08 Dose: 40 mg Pneumococcal Polyvalent Vaccine (Pneumovax 23 Vaccine) 0.5 ml IM .ONCE ONE Stop: 09/18/18 14:01 - Labs Labs: 09/16/18 06:46 11/16/18 06:46 PT 11.2 SECONDS (9.7-12.2) 09/14/18 20:00 INR 1.0 09/14/18 20:00 APTT 27 SECONDS (21-34) 09/14/18 20:00 - Constitutional Appears: Well, No Acute Distress - Head Exam Head Exam: NORMAL INSPECTION - Eye Exam Eye Exam: Normal appearance - ENT Exam ENT Exam: Normal Exam - Neck Exam Neck Exam: Normal Inspection - Respiratory Exam Respiratory Exam: Clear to Ausculation Bilateral, NORMAL BREATHING PATTERN - Cardiovascular Exam Cardiovascular Exam: REGULAR RHYTHM - GI/Abdominal Exam GI & Abdominal Exam: Soft, Tenderness, Hypoactive Bowel Sounds Additional comments: Tender but less guarding of the epigastric area. BS hypoactive. - Rectal Exam Rectal Exam: Deferred - Exam Exam: NORMAL INSPECTION - Extremities Exam Extremities Exam: Normal Inspection - Back Exam Back Exam: NORMAL INSPECTION - Neurological Exam Neurological Exam: Alert, Awake, Oriented x3 - Psychiatric Exam Psychiatric exam: Anxious - Skin Skin Exam: Dry, Intact, Warm Assessment and Plan (1) Acute pancreatitis Assessment & Plan: Improving. To start clear liquid. To continue IVF and Analgesic. Status: Acute
[2018-09-17] MEDS: Lactated Ringer's 1,000 ML IV SCH ×4 (00:50→18:24)
[2018-09-17] MEDS: Piperacillin/Tazobact 3.375 GM in Sodium Chloride 100 ML IVPB SCH ×4 (04:08→22:24)
[2018-09-17] MEDS: Morphine 4 MG/ML VIAL IVP PRN (04:36)
[2018-09-17 06:39] LABS: BASO % 0.4 % (0.0-2.0); EOS # 0.3 K/uL (0.0-0.7); EOS % 3.1 % (0.0-4.0); HEMOGLOBIN 13.7 g/dL (12.0-18.0); LYMPH % 9.4 % (20.0-40.0); MEAN CELL VOLUME 85.9 fL (80.0-94.0); MEAN CORPUSCULAR HGB CONC 34.9 g/dL (33.0-37.0); MEAN PLATELET VOLUME 9.2 fL (7.2-11.7); MONO # 0.9 K/uL (0.0-0.8); MONO % 8.4 % (0.0-10.0); NEUT # 8.1 K/uL (1.8-7.0); NEUT % 78.7 % (50.0-75.0); PLATELET COUNT 111 K/uL (130-400); RBC 4.56 Mil/uL (4.40-5.90); RED CELL DISTRIBUTION WIDTH 13.7 % (11.5-14.5); WHITE BLOOD COUNT 10.3 K/uL (4.8-10.8)
[2018-09-17 06:53] LABS: ALB/GLOB RATIO 1.1 (1.0-2.1); ALBUMIN 3.2 g/dL (3.5-5.0); ALT/SGPT 62 U/L (21-72); AMYLASE 225 U/L (30-110); AST/SGOT 25 U/L (17-59); BLOOD UREA NITROGEN 11 mg/dL (9-20); CALCIUM 7.9 mg/dl (8.6-10.4); GFR NON-AFRICAN AMERICAN > 60; LIPASE 259 U/L (23-300)
[2018-09-17 09:08] LABS: EOSINOPHIL 1 % (0-4); LYMPHOCYTE 8 % (20-40); MONOCYTE 7 % (0-10); NEUTROPHIL 84 % (50-75); PLATELET ESTIMATE SLIGHTLY DECREASED (NORMAL); TOTAL CELLS COUNTED 100
[2018-09-17 09:09] LABS: ANISOCYTOSIS SLIGHT; TOXIC GRANULATION PRESENT
--- NOTE | 2018-09-17 09:36 | CP.PCM.PN ---
Subjective - Date & Time of Evaluation Date of Evaluation: 09/17/18 Time of Evaluation: 07:00 - Subjective Subjective: General surgery progress note for Dr. Jean Pt seen and examined this AM. No adverse events overnight. patient tolerated CLD well, no nausea, no vomiting, passed gas last night with improvement in pain Objective - Vital Signs/Intake and Output Vital Signs (last 24 hours): Temp Pulse Resp BP Pulse Ox 99.2 F 87 20 156/98 H 96 09/17/18 08:00 09/17/18 08:00 09/17/18 08:00 09/17/18 08:00 09/17/18 08:00 Intake and Output: 09/17/18 09/17/18 06:59 18:59 Intake Total 1200 Balance 1200 - Medications Medications: Current Medications Acetaminophen (Tylenol 325mg Tab) 650 mg PO Q6 PRN PRN Reason: Fever >100.4 F Last Admin: 09/16/18 20:17 Dose: 650 mg Lactated Ringer's (Lactated Ringer's) 1,000 mls @ 120 mls/hr IV .Q8H20M [facility] Last Admin: 09/17/18 04:40 Dose: 120 mls/hr Piperacillin Sod/Tazobactam (Sod 3.375 gm/ Sodium Chloride) 100 mls @ 200 mls/hr IVPB Q6H [facility]; Protocol Last Admin: 09/17/18 04:08 Dose: 200 mls/hr Influenza Virus Vaccine (Fluzone Quad [id number]) 60 mcg IM .ONCE ONE Stop: 09/18/18 14:01 Morphine Sulfate (Morphine) 4 mg IVP Q4H PRN PRN Reason: Pain, moderate (4-7) Last Admin: 09/17/18 04:36 Dose: 4 mg Pantoprazole Sodium (Protonix Inj) 40 mg IVP DAILY [facility] Last Admin: 09/16/18 10:08 Dose: 40 mg Pneumococcal Polyvalent Vaccine (Pneumovax 23 Vaccine) 0.5 ml IM .ONCE ONE Stop: 09/18/18 14:01 Senna/Docusate Sodium (Senokot S 50 Mg-8.6 Mg) 1 tab PO BID [facility] - Labs Labs: 09/17/18 06:18 09/17/18 06:19 PT 11.2 SECONDS (9.7-12.2) 09/14/18 20:00 INR 1.0 09/14/18 20:00 APTT 27 SECONDS (21-34) 09/14/18 20:00 - Constitutional Appears: Well, Non-toxic, No Acute Distress - Head Exam Head Exam: ATRAUMATIC, NORMOCEPHALIC - Eye Exam Eye Exam: Conjunctival injection, Normal appearance. absent: Scleral icterus - ENT Exam ENT Exam: Mucous Membranes Moist, Normal Oropharynx - Respiratory Exam Respiratory Exam: NORMAL BREATHING PATTERN. absent: Accessory Muscle Use, Respiratory Distress - Cardiovascular Exam Cardiovascular Exam: RRR - GI/Abdominal Exam GI & Abdominal Exam: Distended (mild), Soft, Tenderness (mild epigastric tenderness to palpation). absent: Guarding - Extremities Exam Extremities Exam: absent: Calf Tenderness, Pedal Edema, Tenderness - Neurological Exam Neurological Exam: Alert, Awake, Oriented x3 - Psychiatric Exam Psychiatric exam: Normal Affect, Normal Mood - Skin Skin Exam: Dry, Normal Color, Warm Assessment and Plan - Assessment and Plan (Free Text) Assessment: 58M with pancreatitis--possible gallstone pancreatitis vs gallbladder polyp Plan: Continue CLD add pericolace to regimen Contineu antibiotics and IVF Continue to monitor clinical picture--once pancreatitis improved with consider cholecystectomy this hospitalization if patient agrees Encourage ambulation PRN nausea and pain medication Discussed with Dr. Miranda Mckeon, PGY2
[2018-09-17] MEDS: Docusate-Senna 50 mg-8.6 mg Tab PO SCH ×2 (09:39→18:26)
--- NOTE | 2018-09-17 10:29 | CP.PCM.PN ---
Subjective - Date & Time of Evaluation Date of Evaluation: 09/17/18 Time of Evaluation: 10:26 - Subjective Subjective: COVERING DR COLEMAN Less pain and tolerating liquids. LFT's and Lipase/amylase much better Objective - Vital Signs/Intake and Output Vital Signs (last 24 hours): Temp Pulse Resp BP Pulse Ox 99.2 F 87 20 156/98 H 96 09/17/18 08:00 09/17/18 08:00 09/17/18 08:00 09/17/18 08:00 09/17/18 08:00 Intake and Output: 09/17/18 09/17/18 06:59 18:59 Intake Total 1200 Balance 1200 - Medications Medications: Current Medications Acetaminophen (Tylenol 325mg Tab) 650 mg PO Q6 PRN PRN Reason: Fever >100.4 F Last Admin: 09/16/18 20:17 Dose: 650 mg Lactated Ringer's (Lactated Ringer's) 1,000 mls @ 120 mls/hr IV .Q8H20M [facility] Last Admin: 09/17/18 09:39 Dose: 120 mls/hr Piperacillin Sod/Tazobactam (Sod 3.375 gm/ Sodium Chloride) 100 mls @ 200 mls/hr IVPB Q6H [facility]; Protocol Last Admin: 09/17/18 04:08 Dose: 200 mls/hr Influenza Virus Vaccine (Fluzone Quad [id number]) 60 mcg IM .ONCE ONE Stop: 09/18/18 14:01 Morphine Sulfate (Morphine) 4 mg IVP Q4H PRN PRN Reason: Pain, moderate (4-7) Last Admin: 09/17/18 04:36 Dose: 4 mg Pantoprazole Sodium (Protonix Inj) 40 mg IVP DAILY [facility] Last Admin: 09/17/18 09:39 Dose: 40 mg Pneumococcal Polyvalent Vaccine (Pneumovax 23 Vaccine) 0.5 ml IM .ONCE ONE Stop: 09/18/18 14:01 Senna/Docusate Sodium (Senokot S 50 Mg-8.6 Mg) 1 tab PO BID [facility] Last Admin: 09/17/18 09:39 Dose: 1 tab - Labs Labs: 09/17/18 06:18 09/17/18 06:19 PT 11.2 SECONDS (9.7-12.2) 09/14/18 20:00 INR 1.0 09/14/18 20:00 APTT 27 SECONDS (21-34) 09/14/18 20:00 - Constitutional Appears: No Acute Distress - Head Exam Head Exam: ATRAUMATIC, NORMOCEPHALIC - Eye Exam Eye Exam: EOMI, PERRL. absent: Scleral icterus - Respiratory Exam Respiratory Exam: NORMAL BREATHING PATTERN - Cardiovascular Exam Cardiovascular Exam: REGULAR RHYTHM, +S1 - GI/Abdominal Exam GI & Abdominal Exam: Soft, Tenderness, Hypoactive Bowel Sounds. absent: Distended, Guarding, Rigid, Mass, Rebound - Extremities Exam Extremities Exam: Normal Inspection Assessment and Plan (1) Abnormal LFTs Assessment & Plan: May represent passage of CBD stone with marked improvement. r/o underlying chronic liver disease, Fatty Liver. Observe Status: Acute (2) Acute pancreatitis Assessment & Plan: Etiology of pancreatitis remains unclear. Possible passage of CBD stone likely given associated rise and fall in LFTs and pancreatic enzymes. No stone seen on MRI or other imaging modalities. Advance diet as tolerated. Observe plus IV fluids. Status: Acute (3) Gallbladder polyp Assessment & Plan: Polyp found on studies unlikely to be cause of pancreatitis or explain elevated LFTs. Surgical team involved. Observe Status: Acute
--- NOTE | 2018-09-17 16:35 | CP.PCM.PN ---
Subjective - Date & Time of Evaluation Date of Evaluation: 09/17/18 Time of Evaluation: 16:30 - Subjective Subjective: Patient tolerates clear liquid diet, passes flatus, denies any nausea. But still has abdominal pain and constipation. Liver enzymes almost normal . T britt: 2.2 Serum Amylase: 225 Serum lipase : 259. Afebrile. Will advance to full liquid diet. Objective - Vital Signs/Intake and Output Vital Signs (last 24 hours): Temp Pulse Resp BP Pulse Ox 99.2 F 87 20 156/98 H 96 09/17/18 08:00 09/17/18 08:00 09/17/18 08:00 09/17/18 08:00 09/17/18 08:00 Intake and Output: 09/17/18 09/17/18 06:59 18:59 Intake Total 1600 Balance 1600 - Medications Medications: Current Medications Acetaminophen (Tylenol 325mg Tab) 650 mg PO Q6 PRN PRN Reason: Fever >100.4 F Last Admin: 09/16/18 20:17 Dose: 650 mg Lactated Ringer's (Lactated Ringer's) 1,000 mls @ 120 mls/hr IV .Q8H20M [facility] Last Admin: 09/17/18 09:39 Dose: 120 mls/hr Piperacillin Sod/Tazobactam (Sod 3.375 gm/ Sodium Chloride) 100 mls @ 200 mls/hr IVPB Q6H [facility]; Protocol Last Admin: 09/17/18 10:43 Dose: 200 mls/hr Influenza Virus Vaccine (Fluzone Quad [id number]) 60 mcg IM .ONCE ONE Stop: 09/18/18 14:01 Morphine Sulfate (Morphine) 4 mg IVP Q4H PRN PRN Reason: Pain, moderate (4-7) Last Admin: 09/17/18 04:36 Dose: 4 mg Pantoprazole Sodium (Protonix Inj) 40 mg IVP DAILY [facility] Last Admin: 09/17/18 09:39 Dose: 40 mg Pneumococcal Polyvalent Vaccine (Pneumovax 23 Vaccine) 0.5 ml IM .ONCE ONE Stop: 09/18/18 14:01 Senna/Docusate Sodium (Senokot S 50 Mg-8.6 Mg) 1 tab PO BID [facility] Last Admin: 09/17/18 09:39 Dose: 1 tab - Labs Labs: 09/17/18 06:18 09/17/18 06:19 PT 11.2 SECONDS (9.7-12.2) 09/14/18 20:00 INR 1.0 09/14/18 20:00 APTT 27 SECONDS (21-34) 09/14/18 20:00 - Constitutional Appears: Well, No Acute Distress - Head Exam Head Exam: NORMAL INSPECTION - Eye Exam Eye Exam: Normal appearance Pupil Exam: NORMAL ACCOMODATION - ENT Exam ENT Exam: Normal Exam - Neck Exam Neck Exam: Normal Inspection - Respiratory Exam Respiratory Exam: Clear to Ausculation Bilateral, NORMAL BREATHING PATTERN - Cardiovascular Exam Cardiovascular Exam: REGULAR RHYTHM - GI/Abdominal Exam GI & Abdominal Exam: Soft, Tenderness, Hypoactive Bowel Sounds Additional comments: Abdomen mat making machine tender at the epigastric area, but no guarding. - Rectal Exam Rectal Exam: Deferred - Extremities Exam Extremities Exam: Normal Inspection - Back Exam Back Exam: NORMAL INSPECTION - Neurological Exam Neurological Exam: Alert, Awake, Oriented x3 - Psychiatric Exam Psychiatric exam: Anxious - Skin Skin Exam: Dry, Intact, Normal Color, Warm Assessment and Plan (1) Acute pancreatitis Assessment & Plan: Improving. Advance to full liquid diet. Status: Acute
[2018-09-17] MEDS ORDERED: Magnesium Hydroxide Susp 30 ml UD PO ONE (16:42)
[2018-09-18] MEDS: Morphine 4 MG/ML VIAL IVP PRN (00:36)
[2018-09-18] MEDS: Lactated Ringer's 1,000 ML IV SCH ×4 (00:38→18:46)
[2018-09-18] MEDS: Piperacillin/Tazobact 3.375 GM in Sodium Chloride 100 ML IVPB SCH ×4 (04:04→22:35)
[2018-09-18 07:56] LABS: BASO % 0.4 % (0.0-2.0); EOS # 0.4 K/uL (0.0-0.7); HEMOGLOBIN 13.8 g/dL (12.0-18.0); LYMPH # 1.2 K/uL (1.0-4.3); LYMPH % 11.8 % (20.0-40.0); MEAN CELL VOLUME 86.5 fL (80.0-94.0); MEAN CORPUSCULAR HEMOGLOBIN 29.7 pg (27.0-31.0); MEAN CORPUSCULAR HGB CONC 34.3 g/dL (33.0-37.0); MEAN PLATELET VOLUME 9.1 fL (7.2-11.7); MONO # 0.9 K/uL (0.0-0.8); MONO % 8.4 % (0.0-10.0); NEUT # 7.9 K/uL (1.8-7.0); NEUT % 75.4 % (50.0-75.0); RBC 4.66 Mil/uL (4.40-5.90); RED CELL DISTRIBUTION WIDTH 13.5 % (11.5-14.5); WHITE BLOOD COUNT 10.5 K/uL (4.8-10.8)
[2018-09-18 08:36] LABS: ALBUMIN 3.2 g/dL (3.5-5.0); ALT/SGPT 49 U/L (21-72); AMYLASE 118 U/L (30-110); AST/SGOT 22 U/L (17-59); BLOOD UREA NITROGEN 13 mg/dL (9-20); GFR NON-AFRICAN AMERICAN > 60; LIPASE 151 U/L (23-300)
[2018-09-18] MEDS: Docusate-Senna 50 mg-8.6 mg Tab PO SCH ×2 (09:34→17:14)
--- NOTE | 2018-09-18 10:44 | CP.PCM.PN ---
Subjective - Date & Time of Evaluation Date of Evaluation: 09/18/18 Time of Evaluation: 10:41 - Subjective Subjective: COVERING DR COLEMAN No pain N/V. Enzymes have virtually normalized. Objective - Vital Signs/Intake and Output Vital Signs (last 24 hours): Temp Pulse Resp BP Pulse Ox 99.1 F 88 20 154/90 H 96 09/18/18 08:00 09/18/18 08:00 09/18/18 08:00 09/18/18 08:00 09/18/18 08:00 Intake and Output: 09/18/18 09/18/18 06:59 18:59 Intake Total 1460 1220 Output Total 1000 Balance 460 1220 - Medications Medications: Current Medications Acetaminophen (Tylenol 325mg Tab) 650 mg PO Q6 PRN PRN Reason: Fever >100.4 F Last Admin: 09/16/18 20:17 Dose: 650 mg Lactated Ringer's (Lactated Ringer's) 1,000 mls @ 120 mls/hr IV .Q8H20M [facility] Last Admin: 09/18/18 00:38 Dose: 120 mls/hr Piperacillin Sod/Tazobactam (Sod 3.375 gm/ Sodium Chloride) 100 mls @ 200 mls/hr IVPB Q6H [facility]; Protocol Last Admin: 09/18/18 10:37 Dose: 200 mls/hr Influenza Virus Vaccine (Fluzone Quad [id number]) 60 mcg IM .ONCE ONE Stop: 09/18/18 14:01 Morphine Sulfate (Morphine) 4 mg IVP Q4H PRN PRN Reason: Pain, moderate (4-7) Last Admin: 09/18/18 00:36 Dose: 4 mg Pantoprazole Sodium (Protonix Inj) 40 mg IVP DAILY [facility] Last Admin: 09/18/18 09:34 Dose: 40 mg Pneumococcal Polyvalent Vaccine (Pneumovax 23 Vaccine) 0.5 ml IM .ONCE ONE Stop: 09/18/18 14:01 Senna/Docusate Sodium (Senokot S 50 Mg-8.6 Mg) 1 tab PO BID [facility] Last Admin: 09/18/18 09:34 Dose: 1 tab - Labs Labs: 09/18/18 07:46 09/18/18 07:46 PT 11.2 SECONDS (9.7-12.2) 09/14/18 20:00 INR 1.0 09/14/18 20:00 APTT 27 SECONDS (21-34) 09/14/18 20:00 - Constitutional Appears: No Acute Distress - Head Exam Head Exam: ATRAUMATIC, NORMOCEPHALIC - Eye Exam Eye Exam: EOMI, PERRL - Respiratory Exam Respiratory Exam: NORMAL BREATHING PATTERN - Cardiovascular Exam Cardiovascular Exam: REGULAR RHYTHM - GI/Abdominal Exam GI & Abdominal Exam: Soft, Normal Bowel Sounds. absent: Distended, Rigid, Tenderness, Organomegaly, Rebound Assessment and Plan (1) Abnormal LFTs Assessment & Plan: Likely due to passage of CBD stone vs exacerbation of underlying chronic liver disease, (NAFLD, medications, autoimmune, etc) Continue to monitor enzymes though now nearly normal. Status: Acute (2) Acute pancreatitis Assessment & Plan: as above. Advance diet as tolerated. Surgical follow up for possible Lap Padma due to possible passage of stone as source of pancreatitis. Status: Acute (3) Gallbladder polyp Status: Acute
--- NOTE | 2018-09-18 10:44 | CP.PCM.PN ---
Subjective - Date & Time of Evaluation Date of Evaluation: 09/18/18 Time of Evaluation: 10:41 - Subjective Subjective: General Surgery Progress Note for Dr. Jean This 58M was seen and examined this AM at bedside. No acute events overnight. He is tolerating clears. He reports his abdominal pain is improving. He is passing gas however denies bowel movement. Discussed a need for cholecystectomy with him during this admission. He requested that I discuss the cholecystectomy with Dr. Kiran. Objective - Vital Signs/Intake and Output Vital Signs (last 24 hours): Temp Pulse Resp BP Pulse Ox 99.1 F 88 20 154/90 H 96 09/18/18 08:00 09/18/18 08:00 09/18/18 08:00 09/18/18 08:00 09/18/18 08:00 Intake and Output: 09/18/18 09/18/18 06:59 18:59 Intake Total 1460 1220 Output Total 1000 Balance 460 1220 - Medications Medications: Current Medications Acetaminophen (Tylenol 325mg Tab) 650 mg PO Q6 PRN PRN Reason: Fever >100.4 F Last Admin: 09/16/18 20:17 Dose: 650 mg Lactated Ringer's (Lactated Ringer's) 1,000 mls @ 120 mls/hr IV .Q8H20M [facility] Last Admin: 09/18/18 00:38 Dose: 120 mls/hr Piperacillin Sod/Tazobactam (Sod 3.375 gm/ Sodium Chloride) 100 mls @ 200 mls/hr IVPB Q6H [facility]; Protocol Last Admin: 09/18/18 10:37 Dose: 200 mls/hr Influenza Virus Vaccine (Fluzone Quad [id number]) 60 mcg IM .ONCE ONE Stop: 09/18/18 14:01 Morphine Sulfate (Morphine) 4 mg IVP Q4H PRN PRN Reason: Pain, moderate (4-7) Last Admin: 09/18/18 00:36 Dose: 4 mg Pantoprazole Sodium (Protonix Inj) 40 mg IVP DAILY [facility] Last Admin: 09/18/18 09:34 Dose: 40 mg Pneumococcal Polyvalent Vaccine (Pneumovax 23 Vaccine) 0.5 ml IM .ONCE ONE Stop: 09/18/18 14:01 Senna/Docusate Sodium (Senokot S 50 Mg-8.6 Mg) 1 tab PO BID [facility] Last Admin: 09/18/18 09:34 Dose: 1 tab - Labs Labs: 09/18/18 07:46 09/18/18 07:46 PT 11.2 SECONDS (9.7-12.2) 09/14/18 20:00 INR 1.0 09/14/18 20:00 APTT 27 SECONDS (21-34) 09/14/18 20:00 - Constitutional Appears: Non-toxic, No Acute Distress - Head Exam Head Exam: ATRAUMATIC, NORMOCEPHALIC - Eye Exam Eye Exam: EOMI, Normal appearance - ENT Exam ENT Exam: Mucous Membranes Moist - Respiratory Exam Respiratory Exam: NORMAL BREATHING PATTERN - Cardiovascular Exam Cardiovascular Exam: +S1, +S2 - GI/Abdominal Exam GI & Abdominal Exam: Soft, Tenderness. absent: Distended, Firm, Guarding, Rigid - Neurological Exam Neurological Exam: Alert, Awake - Psychiatric Exam Psychiatric exam: Normal Affect, Normal Mood - Skin Skin Exam: Dry, Intact Assessment and Plan - Assessment and Plan (Free Text) Assessment: 58M with gallstone pancreatitis Discussed surgical recommendations for laparoscopic cholecystectomy prior to discharge with Dr. Kiran however the patient does not wont to have a cholecystectomy at this time. Continue medical management per primary care physician and gastroenterology team. Thank you for the consult. Please reconsult as needed. D/W Dr. Miranda Monsalve PGY3
--- NOTE | 2018-09-18 11:45 | CP.PCM.PN ---
Subjective - Date & Time of Evaluation Date of Evaluation: 09/18/18 Time of Evaluation: 11:49 - Subjective Subjective: no pain no tenderness. ok for d/c. I explainrd to patient probability of lap evelia. he seems agreeable. will sse in oddice adter my return and schedule as an elective procedure Objective - Vital Signs/Intake and Output Vital Signs (last 24 hours): Temp Pulse Resp BP Pulse Ox 99.1 F 88 20 154/90 H 96 09/18/18 08:00 09/18/18 08:00 09/18/18 08:00 09/18/18 08:00 09/18/18 08:00 Intake and Output: 09/18/18 09/18/18 06:59 18:59 Intake Total 1460 1220 Output Total 1000 Balance 460 1220 - Medications Medications: Current Medications Acetaminophen (Tylenol 325mg Tab) 650 mg PO Q6 PRN PRN Reason: Fever >100.4 F Last Admin: 09/16/18 20:17 Dose: 650 mg Lactated Ringer's (Lactated Ringer's) 1,000 mls @ 120 mls/hr IV .Q8H20M [facility] Last Admin: 09/18/18 00:38 Dose: 120 mls/hr Piperacillin Sod/Tazobactam (Sod 3.375 gm/ Sodium Chloride) 100 mls @ 200 mls/hr IVPB Q6H [facility]; Protocol Last Admin: 09/18/18 10:37 Dose: 200 mls/hr Influenza Virus Vaccine (Fluzone Quad [id number]) 60 mcg IM .ONCE ONE Stop: 09/18/18 14:01 Morphine Sulfate (Morphine) 4 mg IVP Q4H PRN PRN Reason: Pain, moderate (4-7) Last Admin: 09/18/18 00:36 Dose: 4 mg Pantoprazole Sodium (Protonix Inj) 40 mg IVP DAILY [facility] Last Admin: 09/18/18 09:34 Dose: 40 mg Pneumococcal Polyvalent Vaccine (Pneumovax 23 Vaccine) 0.5 ml IM .ONCE ONE Stop: 09/18/18 14:01 Senna/Docusate Sodium (Senokot S 50 Mg-8.6 Mg) 1 tab PO BID [facility] Last Admin: 09/18/18 09:34 Dose: 1 tab - Labs Labs: 09/18/18 07:46 09/18/18 07:46 PT 11.2 SECONDS (9.7-12.2) 09/14/18 20:00 INR 1.0 09/14/18 20:00 APTT 27 SECONDS (21-34) 09/14/18 20:00
[2018-09-18] MEDS ORDERED: Influenza Vaccine 60 MCG/0.5 ML SYR (3 yr & up) IM ONE (14:00)
[2018-09-18] MEDS ORDERED: Pneumococcal 23-Valent Vaccine IM ONE (14:00)
--- NOTE | 2018-09-18 19:31 | CP.PCM.PN ---
Subjective - Date & Time of Evaluation Date of Evaluation: 09/18/18 Time of Evaluation: 16:00 - Subjective Subjective: Patient had a BM today. Has minimal abdominal pain, and tolerated soft diet well. WBC: 10.5 with 75.5 % PMN. BUN: 13 creatinine : 0.9 . Serum Amylase: 118 serum lipase: 259. [facility]. Objective - Vital Signs/Intake and Output Vital Signs (last 24 hours): Temp Pulse Resp BP Pulse Ox 98.7 F 84 20 148/89 97 09/18/18 15:00 09/18/18 15:00 09/18/18 15:00 09/18/18 15:00 09/18/18 15:00 Intake and Output: 09/18/18 09/19/18 18:59 06:59 Intake Total 2660 Output Total 800 Balance 1860 - Medications Medications: Current Medications Acetaminophen (Tylenol 325mg Tab) 650 mg PO Q6 PRN PRN Reason: Fever >100.4 F Last Admin: 09/16/18 20:17 Dose: 650 mg Lactated Ringer's (Lactated Ringer's) 1,000 mls @ 120 mls/hr IV .Q8H20M [facility] Last Admin: 09/18/18 18:46 Dose: Not Given Piperacillin Sod/Tazobactam (Sod 3.375 gm/ Sodium Chloride) 100 mls @ 200 mls/hr IVPB Q6H [facility]; Protocol Last Admin: 09/18/18 17:14 Dose: 200 mls/hr Morphine Sulfate (Morphine) 4 mg IVP Q4H PRN PRN Reason: Pain, moderate (4-7) Last Admin: 09/18/18 00:36 Dose: 4 mg Pantoprazole Sodium (Protonix Inj) 40 mg IVP DAILY [facility] Last Admin: 09/18/18 09:34 Dose: 40 mg Senna/Docusate Sodium (Senokot S 50 Mg-8.6 Mg) 1 tab PO BID [facility] Last Admin: 09/18/18 17:14 Dose: 1 tab - Labs Labs: 09/18/18 07:46 09/18/18 07:46 PT 11.2 SECONDS (9.7-12.2) 09/14/18 20:00 INR 1.0 09/14/18 20:00 APTT 27 SECONDS (21-34) 09/14/18 20:00 - Constitutional Appears: Well, No Acute Distress - Head Exam Head Exam: NORMAL INSPECTION - Eye Exam Eye Exam: Normal appearance - ENT Exam ENT Exam: Normal Exam - Neck Exam Neck Exam: Normal Inspection - Respiratory Exam Respiratory Exam: Clear to Ausculation Bilateral, NORMAL BREATHING PATTERN - Cardiovascular Exam Cardiovascular Exam: REGULAR RHYTHM - GI/Abdominal Exam GI & Abdominal Exam: Soft, Normal Bowel Sounds Additional comments: Mild tenderness of the epigastric area. - Rectal Exam Rectal Exam: Deferred - Extremities Exam Extremities Exam: Normal Inspection - Back Exam Back Exam: NORMAL INSPECTION - Neurological Exam Neurological Exam: Alert, Awake, Oriented x3 - Psychiatric Exam Psychiatric exam: Anxious - Skin Skin Exam: Dry, Intact, Normal Color, Warm Assessment and Plan (1) Acute pancreatitis Assessment & Plan: To recheck serum Amylase, lipase and liver enzymes in AM. Status: Acute
[2018-09-18] MEDS ORDERED: Benzocaine/Menthol (Cepacol) Lozenge MT ONE (22:22)
[2018-09-19] MEDS: Lactated Ringer's 1,000 ML IV SCH ×2 (03:07→06:27)
[2018-09-19] MEDS: Piperacillin/Tazobact 3.375 GM in Sodium Chloride 100 ML IVPB SCH ×2 (04:03→11:00)
[2018-09-19 07:00] LABS: BASO # 0.1 K/uL (0.0-0.2); BASO % 0.6 % (0.0-2.0); EOS # 0.4 K/uL (0.0-0.7); EOS % 4.8 % (0.0-4.0); HEMOGLOBIN 13.7 g/dL (12.0-18.0); LYMPH # 1.2 K/uL (1.0-4.3); LYMPH % 13.8 % (20.0-40.0); MEAN CORPUSCULAR HEMOGLOBIN 29.6 pg (27.0-31.0); MEAN CORPUSCULAR HGB CONC 34.4 g/dL (33.0-37.0); MEAN PLATELET VOLUME 8.7 fL (7.2-11.7); MONO # 0.8 K/uL (0.0-0.8); NEUT # 6.3 K/uL (1.8-7.0); NEUT % 71.8 % (50.0-75.0); RBC 4.64 Mil/uL (4.40-5.90); RED CELL DISTRIBUTION WIDTH 13.5 % (11.5-14.5); WHITE BLOOD COUNT 8.7 K/uL (4.8-10.8)
[2018-09-19 08:11] LABS: ALBUMIN 3.4 g/dL (3.5-5.0); ALT/SGPT 62 U/L (21-72); AMYLASE 116 U/L (30-110); AST/SGOT 37 U/L (17-59); BLOOD UREA NITROGEN 11 mg/dL (9-20); CALCIUM 8.3 mg/dl (8.6-10.4); GFR NON-AFRICAN AMERICAN > 60; LIPASE 243 U/L (23-300)
[2018-09-19 08:33] VITALS: BP 153/90; PULSE 80; RESP 20; TEMP 996; O2SAT 97
[2018-09-19] MEDS: Docusate-Senna 50 mg-8.6 mg Tab PO SCH (09:23)
--- NOTE | 2018-09-19 09:42 | CP.PCM.PN ---
Subjective - Date & Time of Evaluation Date of Evaluation: 09/19/18 Time of Evaluation: 09:40 - Subjective Subjective: Patient reports that the abdominal katz is much improved. He is tolerating a regular diet. He denies having nausea and vomiting. He had a formed bowel movement yesterday, but none today. Objective - Vital Signs/Intake and Output Vital Signs (last 24 hours): Temp Pulse Resp BP Pulse Ox 996 F H 80 20 153/90 H 97 09/19/18 08:30 09/19/18 08:30 09/19/18 08:30 09/19/18 08:30 09/19/18 08:30 Intake and Output: 09/19/18 09/19/18 06:59 18:59 Intake Total 2820 Output Total 1000 Balance 1820 - Medications Medications: Current Medications Acetaminophen (Tylenol 325mg Tab) 650 mg PO Q6 PRN PRN Reason: Fever >100.4 F Last Admin: 09/16/18 20:17 Dose: 650 mg Piperacillin Sod/Tazobactam (Sod 3.375 gm/ Sodium Chloride) 100 mls @ 200 mls/hr IVPB Q6H [facility]; Protocol Last Admin: 09/19/18 04:03 Dose: 200 mls/hr Morphine Sulfate (Morphine) 4 mg IVP Q4H PRN PRN Reason: Pain, moderate (4-7) Last Admin: 09/18/18 00:36 Dose: 4 mg Pantoprazole Sodium (Protonix Inj) 40 mg IVP DAILY [facility] Last Admin: 09/19/18 09:23 Dose: 40 mg Senna/Docusate Sodium (Senokot S 50 Mg-8.6 Mg) 1 tab PO BID [facility] Last Admin: 09/19/18 09:23 Dose: 1 tab - Labs Labs: 09/19/18 06:43 09/19/18 06:43 PT 11.2 SECONDS (9.7-12.2) 09/14/18 20:00 INR 1.0 09/14/18 20:00 APTT 27 SECONDS (21-34) 09/14/18 20:00 - Constitutional Appears: No Acute Distress - Head Exam Head Exam: ATRAUMATIC, NORMOCEPHALIC - Eye Exam Eye Exam: EOMI, PERRL - Neck Exam Neck Exam: absent: Lymphadenopathy, Thyromegaly - Respiratory Exam Respiratory Exam: NORMAL BREATHING PATTERN. absent: Rales, Rhonchi, Wheezes - Cardiovascular Exam Cardiovascular Exam: REGULAR RHYTHM, +S1, +S2. absent: Gallop, Rubs, Murmur - GI/Abdominal Exam GI & Abdominal Exam: Soft, Normal Bowel Sounds. absent: Tenderness, Mass, Organomegaly - Rectal Exam Rectal Exam: Deferred - Extremities Exam Extremities Exam: absent: Calf Tenderness, Pedal Edema Assessment and Plan (1) Acute pancreatitis Assessment & Plan: Pain is much improved. He is tolerating a regular diet. Agree with plans for cholecystectomy, which may be arranged as an outpatient. Status: Acute
--- NOTE | 2018-09-19 12:36 | CARD ---
APPROVED REPORT Date of service: 09/14/2018 EKG Measurement Heart [id number] ME [id number] <Conclusion> Normal sinus rhythm Septal infarct, age undetermined Abnormal ECG
--- NOTE | 2018-09-27 08:16 | CP.PCM.DIS ---
Provider - Provider Date of Admission: 09/14/18 22:46 Attending physician: Byron Kiran MD Primary care physician: Byron Kiran M.D. Consults: Dr Purvis ( GI) Dr Jean ( Surgery ). Time Spent in preparation of Discharge (in minutes): 45 Diagnosis - Discharge Diagnosis (1) Acute pancreatitis Status: Acute Hospital Course - Lab Results Lab Results: Micro Results 09/18/18 Unknown Stool Stool Culture - Final NO SALMONELLA, SHIGELLA OR CAMPYLOBACTER ISOLATED. 09/15/18 00:25 Blood-Venous Blood Culture - Final NO GROWTH AFTER 5 DAYS 09/15/18 00:25 Blood-Venous Gram Stain - Final TEST NOT PERFORMED 09/15/18 00:25 Blood-Venous Blood Culture - Final NO GROWTH AFTER 5 DAYS 09/15/18 00:25 Blood-Venous Gram Stain - Final TEST NOT PERFORMED Most Recent Lab Values WBC 8.7 K/uL (4.8-10.8) 09/19/18 06:43 RBC 4.64 Mil/uL (4.40-5.90) 09/19/18 06:43 Hgb 13.7 g/dL (12.0-18.0) 09/19/18 06:43 Hct 39.9 % (35.0-51.0) 09/19/18 06:43 MCV 86.0 fL (80.0-94.0) 09/19/18 06:43 MCH 29.6 pg (27.0-31.0) 09/19/18 06:43 MCHC 34.4 g/dL (33.0-37.0) 09/19/18 06:43 RDW 13.5 % (11.5-14.5) 09/19/18 06:43 Plt Count 169 K/uL (130-400) 09/19/18 06:43 MPV 8.7 fL (7.2-11.7) 09/19/18 06:43 Neut % (Auto) 71.8 % (50.0-75.0) 09/19/18 06:43 Lymph % (Auto) 13.8 % (20.0-40.0) L 09/19/18 06:43 [place] % (Auto) 9.0 % (0.0-10.0) 09/19/18 06:43 Eos % (Auto) 4.8 % (0.0-4.0) H 09/19/18 06:43 Baso % (Auto) 0.6 % (0.0-2.0) 09/19/18 06:43 Neut # (Auto) 6.3 K/uL (1.8-7.0) 09/19/18 06:43 Lymph # (Auto) 1.2 K/uL (1.0-4.3) 09/19/18 06:43 [place] # (Auto) 0.8 K/uL (0.0-0.8) 09/19/18 06:43 Eos # (Auto) 0.4 K/uL (0.0-0.7) 09/19/18 06:43 Baso # (Auto) 0.1 K/uL (0.0-0.2) 09/19/18 06:43 Neutrophils % (Manual) 84 % (50-75) H 09/17/18 06:18 Lymphocytes % (Manual) 8 % (20-40) L 09/17/18 06:18 Monocytes % (Manual) 7 % (0-10) 09/17/18 06:18 Eosinophils % (Manual) 1 % (0-4) 09/17/18 06:18 Toxic Granulation Present 09/17/18 06:18 Platelet Estimate Slightly decreased (NORMAL) L 09/17/18 06:18 Anisocytosis (manual) Slight 09/17/18 06:18 PT 11.2 SECONDS (9.7-12.2) 09/14/18 20:00 INR 1.0 09/14/18 20:00 APTT 27 SECONDS (21-34) 09/14/18 20:00 Sodium 136 mmol/L (132-148) 09/19/18 06:43 Potassium 3.6 mmol/L (3.6-5.2) 09/19/18 06:43 Chloride 97 mmol/L (98-107) L 09/19/18 06:43 Carbon Dioxide 28 mmol/L (22-30) 09/19/18 06:43 Anion Gap 15 (10-20) 09/19/18 06:43 BUN 11 mg/dL (9-20) 09/19/18 06:43 Creatinine 1.0 mg/dL (0.8-1.5) 09/19/18 06:43 Est GFR ( Amer) > 60 09/19/18 06:43 Est GFR (Non-Af Amer) > 60 09/19/18 06:43 Random Glucose 103 mg/dL (75-110) 09/19/18 06:43 Calcium 8.3 mg/dl (8.6-10.4) L 09/19/18 06:43 Ionized Calcium 4.7 mg/dL (4.80-5.60) L 09/16/18 06:46 Phosphorus 2.9 mg/dL (2.5-4.5) 09/19/18 06:43 Magnesium 2.2 mg/dL (1.6-2.3) 09/19/18 06:43 Total Bilirubin 1.6 mg/dL (0.2-1.3) H 09/19/18 06:43 AST 37 U/L (17-59) 09/19/18 06:43 ALT 62 U/L (21-72) 09/19/18 06:43 Alkaline Phosphatase 78 U/L (38-126) 09/19/18 06:43 Lactate Dehydrogenase 701 U/L (313-618) H 09/15/18 06:24 Total Protein 6.8 g/dL (6.3-8.3) 09/19/18 06:43 Albumin 3.4 g/dL (3.5-5.0) L 09/19/18 06:43 Globulin 3.4 gm/dL (2.2-3.9) 09/19/18 06:43 Albumin/Globulin Ratio 1.0 (1.0-2.1) 09/19/18 06:43 Triglycerides 46 mg/dL (0-149) 09/15/18 06:24 Cholesterol 156 mg/dL (0-199) 09/15/18 06:24 LDL Cholesterol Direct 117 mg/dL (0-129) 09/15/18 06:24 HDL Cholesterol 41 mg/dL (30-70) 09/15/18 06:24 Amylase 116 U/L (30-110) H 09/19/18 06:43 Lipase 243 U/L (23-300) 09/19/18 06:43 Urine Color Yellow (YELLOW) 09/14/18 21:51 Urine Clarity Clear (Clear) 09/14/18 21:51 Urine pH 6.0 (5.0-8.0) 09/14/18 21:51 Ur Specific [place] 1.041 (1.003-1.030) H 09/14/18 21:51 Urine Protein Negative mg/dL (NEGATIVE) 09/14/18 21:51 Urine Glucose (UA) Normal mg/dL (Normal) 09/14/18 21:51 Urine Ketones Negative mg/dL (NEGATIVE) 09/14/18 21:51 Urine Blood Negative (NEGATIVE) 09/14/18 21:51 Urine Nitrate Negative (NEGATIVE) 09/14/18 21:51 Urine Bilirubin Negative (NEGATIVE) 09/14/18 21:51 Urine Urobilinogen Normal mg/dL (0.2-1.0) 09/14/18 21:51 Ur Leukocyte Esterase Neg [place]/uL (Negative) 09/14/18 21:51 Urine WBC (Auto) < 1 /hpf (0-5) 09/14/18 21:51 Urine RBC (Auto) < 1 /hpf (0-3) 09/14/18 21:51 Stool Leukocytes, Qual Negative (NEGATIVE) 09/18/18 13:51 YVONNE Nuclear Membr Pat Negative (Negative) 09/16/18 06:46 - Hospital Course Hospital Course: 58 yo German male experienced severe abdominal pain after eating a soup at a restaurant in [place]. He developed some diarrhea and nausea, but no fever, but the abdominal pain persisted, and he decided to seek medical attention. In the ED, a CT scan of the abdomen revealed fluid around the duodenum. consistent with an acute pancreatitis, a possible tiny polyp of the gallbladder neck, but no gallstone, no bile duct stone, no bile duct dilatation. An US of the abdomen revealed similar findings. His serum lipase was 35,657 WBC: 18,600 Hgb: 16.9 BUN: 20 creatinine: 1.0 T. Bilirubin: 20 AST: 240 ALT: 152 Alk Phos: 94. He was hospitalized with the diagnosis of acute pancreatitis. He received Morphine sulfate IV for pain, IVF, kept on NPO and started on Zosyn 3.325 g IV q 6h. The abdominal pain improved the next day, serum lipase went down to 5,7000 serum Amylase: 1,132. He was evaluated by Dr Purvis ( GI) and Dr Jean( general surgery). An MRCP on 09/16/2018 revealed edema of the pancreas, fatty liver, but no bile duct dilatation, no bile duct stone, no pancreatic tumor. His abdominal pain improved. He was started on a clear liquid diet, and was given MOM for constipation. His abdominal pain continued to improve, liver enzymes , serum Amylase and serum Lipase kept decreasing rapidly. He had a normal BM on 09/18/2018 and tolerated a regular diet well. He refused a cholecystectomy at the present time. He was discharged home on 09/19/2018 in a stable condition. His medications consisted of Cipro 500 mg PO BID and Flagyl 500 mg PO q6h for a week. He was told to have a F/U with Dr Kiran in a week, and with Dr Purvis in 2 weeks. - Date & Time of H&P Date of H&P: 09/15/18 Discharge Exam - Head Exam Head Exam: ATRAUMATIC, NORMOCEPHALIC - Eye Exam Eye Exam: Normal appearance Pupil Exam: NORMAL ACCOMODATION - ENT Exam ENT Exam: Normal Exam - Neck Exam Neck exam: Normal Inspection - Respiratory Exam Respiratory Exam: Clear to PA & Lateral, NORMAL BREATHING PATTERN - Cardiovascular Exam Cardiovascular Exam: REGULAR RHYTHM - GI/Abdominal Exam GI & Abdominal Exam: Normal Bowel Sounds, Soft, Unremarkable - Rectal Exam Rectal Exam: Deferred - Extremities Exam Extremities exam: normal inspection - Back Exam Back exam: NORMAL INSPECTION - Neurological Exam Neurological exam: Alert, Normal Gait, Oriented x3 - Psychiatric Exam Psychiatric exam: Anxious - Skin Skin Exam: Dry, Intact, Normal Color, Warm Discharge Plan - Discharge Medications Prescriptions: Ciprofloxacin HCl [Cipro] 500 mg PO BID 5 Days #10 tablet Metronidazole 500 mg PO Q6 5 Days #20 tablet - Follow Up Plan Condition: FAIR Disposition: HOME/ ROUTINE Instructions: Ciprofloxacin (Systemic), Pancreatitis (DC), Metronidazole (Systemic) Additional Instructions: Follow up with Dr. Purvis in 2 weeks Follow up with Dr. Kiran in one week cipro 500mg PO BID for 5 days metronidazole 500mg PO q6h for 5 days Referrals: Byron Kiran MD [Staff Provider] - Fuad Purvis MD [Staff Provider] - Clinical Quality Measures - CQM - Heart Failure Will be discharged to: Home Follow Up Date (must be within 7 days from discharge): 09/26/18 Follow Up Time: 14:00 - Date & Time of Discharge Summary Date of Discharge Summary: 09/27/18 Time of Discharge Summary: 08:19
== END 2018-09-19 16:45 | disposition home or self-care (01) | DRG 444 ==
LOC: C.ER 19:28 → C.6T 22:46 → C.3T 09-16 22:23
PROVIDERS: ADMIT Internal Medicine Cardiovascular Disease; ATTEND Internal Medicine Cardiovascular Disease
DX: K80.20 Calculus of gallbladder without cholecystitis without obstruction (principal); K85.10 Biliary acute pancreatitis without necrosis or infection; E78.00 Pure hypercholesterolemia, unspecified; K59.00 Constipation, unspecified; K76.0 Fatty (change of) liver, not elsewhere classified; I10 Essential (primary) hypertension; Z82.49 Family history of ischemic heart disease and other diseases of the circulatory system; Z83.3 Family history of diabetes mellitus; Z87.891 Personal history of nicotine dependence